=== PATIENT | male | born 1950 | race Caucasian/White ===

== ENCOUNTER → 2021-07-13 11:27 | Outpatient (BNVA) | payer OTHER, SELFPAY | PROVIDERS: Visit Provider Urology ==

== ENCOUNTER 2022-01-24 12:38 | Day surgery (SDC) | payer MEDICARE, OTHER, SELFPAY ==
--- NOTE | 2022-01-21 12:17 | HO.ANESPROP2 ---
Documented by User: Ruby De La Cruz NP 01/21/22 12:18 HPI - Anesthesia Eval Consult details Narrative: 71yo M for Left Cystoscopy, Ureteroroscopy, Retro, Laser possible stent PMFSH Active Problems Active Problems: All Active Problems (Updated 01/11/22 @ 13:56 by Chema Ayala MD) Complicated urinary tract infection (Acute) Benign prostatic hyperplasia without lower urinary tract symptoms (Acute) Calculus of kidney (Acute) Past Medical History Medical History Benign prostatic hyperplasia without lower urinary tract symptoms Calculus of kidney Hyperlipidemia Hypothyroidism Surgical History Surgical History History of surgery Social History Social History Patient Tobacco Use Status: Never used Tobacco Use of substances other than those prescribed or required for medical reasons: No Are you DNR?: No Advance Directives: No Advance Directives Information Provided: Yes Recently lost weight without trying: No Nutrition Risks: No Nutritional Risk Meds Allergies Allergy/AdvReac Type Severity Reaction Status Date / Time No Known Allergies Allergy Verified 01/11/22 13:22 Home Medications Medication Instructions Recorded Confirmed Last Taken Type levothyroxine 75 mcg tablet mcg PO 07/13/21 Unknown History (Euthyrox) pravastatin 80 mg tablet mg PO 07/13/21 Unknown History Exam Exam Date and Time: January 21, 2022 121 Assessment and Plan Assessment Anesthesia Assessment: Chart Reviewed Documented by User: Luke Be MD 01/24/22 17:17 PMFSH Past Medical History Medical History Benign prostatic hyperplasia without lower urinary tract symptoms Calculus of kidney Hyperlipidemia Hypothyroidism Functional capacity: independent ambulation Family History Family history of problems with anesthesia: No Surgical History Surgical History History of surgery History of Problems with Anesthesia: No Social History Social History Patient Tobacco Use Status: Never used Tobacco Use of substances other than those prescribed or required for medical reasons: No Are you DNR?: No Advance Directives: No Advance Directives Information Provided: Yes Recently lost weight without trying: No Nutrition Risks: No Nutritional Risk Meds Allergies Allergy/AdvReac Type Severity Reaction Status Date / Time No Known Allergies Allergy Verified 01/11/22 13:22 Home Medications Medication Instructions Recorded Confirmed Last Taken Type levothyroxine 75 mcg tablet mcg PO 07/13/21 Unknown History (Euthyrox) pravastatin 80 mg tablet mg PO 07/13/21 Unknown History Exam Airway Mallampati Class: III TM Dist: >3cm Neck ROM: Full Loose/Missing/Broken Teeth: Yes (Fillings and missing teeth ) Heart: S1,S2 Lungs: b/l breath sounds Assessment and Plan Assessment Anesthesia Assessment: Anesthesia Plan Discussed Final Anesthetic Review Family History of Problems with Anesthesia: No History of Problems with Anesthesia: No NPO: Yes ASA Class: II Final Preanesthetic Review: Meds/Allgs Chart Reviewed, Consent Obtained/Reviewed and Anes Risks/Benef Reviewed Patient Risk: Intermediate Procedure Risk: Intermediate Anesthetic Plan Anesthetic Plan: GA Disposition: Standard PACU
--- NOTE | ~2022-01-24 | FL_ITS ---
EXAMINATION: XR FLUOROSCOPY WITH IMAGES CLINICAL INFORMATION: Left retrograde COMPARISON: None. TECHNIQUE: Fluoroscopy performed by Dr. Chema Ayala. Fluoroscopy time: 1.5 minutes. Cumulative Dose: 24.9 mGy. DAP: 6.79 Gy-cm2. Images: 4. FINDINGS: The initial fluoroscopic spot image shows contrast in the distal left ureter. There is an oval filling defect within the lumen possibly a calculus. The final fluoroscopic spot view shows left ureteral stent in position. There are numerous calcified phleboliths overlying the left and right pelvis. FL/FL guidance in OR IMPRESSION: Fluoroscopy for urologic procedures.
[2022-01-24 13:00] VITALS: BMI 23.3
[2022-01-24 13:07] VITALS: BP 131/71; PULSE 62; RESP 16; TEMP 36.7; O2SAT 96
[2022-01-24] MEDS: Lactated Ringers 1,000 ML 100 ML IVCONT (13:23)
--- NOTE | 2022-01-24 14:25 | MHC.SHP ---
Pre-Procedural Eval Section A Date of Service: 01/24/22 The patient is an INPATIENT: No Changes since office visit: No Cold of Flu in the past 2 weeks, No New Medical Problems, No Changes in Medication and No Patient answered all questions The History & Physical has been completed within 30 days and I have reviewed it.: Yes Section B Chief Complaint: kidney stone Details of Present Illness: left distal and renal stones Relevant Family History (Specify if Yes): No Relevant Social History: None Present Medications: None Medical History: No relevant PMH History of Previous Operations: No relevant previous surgery Allergies: Allergies Allergy/AdvReac Type Severity Reaction Status Date / Time No Known Allergies Allergy Verified 01/11/22 13:22 Review of Systems Sugical H&P ROS: Negative: Constitution, Cardiovascular, Respiratory, Neurological, Psychiatric, Hem-Onc, Allergic/Immunologic, Gastrointestinal, Genitourinary, Musculoskeletal, Integumentary, Endocrine and Eyes/Ears/Nose/Throat Exam Surgical H&P Exam: Normal: HEENT, Normal: Heart, Normal: Lungs, Normal: Extremities, Normal: Abdomen, Normal: Skin and Normal: Neurological Plan Diagnosis/Plan: Unchanged I have reviewed the history and physical and performed a pertinent physical examination on my patient. No changes have occurred unless specified.
--- NOTE | 2022-01-24 16:02 | P.OP_ITS ---
Operative Note Operative Note Date of Service: 01/24/22 Narrative: PreOperative Diagnosis: left distal ureteric stone and left stones in lower pole kidney Post Operative Diagnosis: above Procedure: - cystoscopy, left retrograde - left dilatation of ureteric orifice under fluoroscopy - left rigid ureteroscopy, laser lithotripsy, stone basketing - placement left ureteric access sheath - left flexible ureteroscopy to lower pole kidney stones with laser lithotripsy, basketing - 8 x 5 to 9 mm stones - left stent placement Surgeon: Dr Chema Ayala Anesthesia: General Indications for procedure: found to have distal 12 mm stone in left kidney with mild hydroureteronephrosis and collection of stones in left lower pole Procedure: After informed consent was verified patient was brought to the operating placed in supine position. Anesthesia was administered per protocol. Patient was placed in modified dorsal lithotomy position and prepped and draped in a sterile fashion. Safety pause time-out and side of surgery confirmed. Antibiotics confirmed. A 22 [place] cystoscope was inserted per urethra. Bladder was normal in its entirety. Both ureteric orifices were in normal position. The left ureteric orifice was cannulated and a retrograde examination was performed. filling defects seen in distal portion left ureter with left hydroureteronephrosis . A Sensor guidewire was placed up to the level of the renal pelvis under fluoroscopy. The rigid cystoscope was removed. A Keene dilator was placed over the Sensor guidewire and used to dilate the ureteric orifice under fluoroscopy. The dilator was removed. The semi rigid ureteral scope was placed alongside the Sensor guidewire. the stone was encountered in broken into small pieces using a 360 holmium laser fiber. Using a flat wire basket multiple passes the stone debris was removed we sent for analysis. The rigid ureteral scope was removed. A ureteric access sheath was placed Flexible ureteral scope was placed. Eight 5-9 mm stones were found within the left lower pole. using combination of continuous suction and 270 holmium laser fiber the stones were broken into small pieces and aspirated. Using a 0 tip basket 5 Or 6 final pieces were removed which will be sent for analysis. A 6 [place] by 26 cm double-J stent was placed into the renal pelvis and bladder under a combination of fluoroscopy and direct visualization. The bladder was emptied. The patient tolerated the procedure well and was e xtubated in the operating room, and transferred in stable condition to the recovery area. Pathology: stone from the distal ureter, stone from the kidney Drains: 6 [place] by 26 cm double-J stent
[2022-01-24 16:15] VITALS: BP 135/67; PULSE 61; RESP 15; TEMP 36.3; O2SAT 100
[2022-01-24] MEDS: Phenazopyridine HCL 100 MG TABLET PO (16:17)
[2022-01-24] MEDS: Acetaminophen 325 MG TABLET 650 MG PO (16:17)
[2022-01-24 16:20] VITALS: BP 141/73; PULSE 60; RESP 16; O2SAT 95
[2022-01-24 16:25] VITALS: BP 140/73; PULSE 56; RESP 16; O2SAT 95
[2022-01-24 16:30] VITALS: BP 158/79; PULSE 65; RESP 16; TEMP 36.1; O2SAT 96
[2022-01-27 17:07] LABS: Stone Source LEFT KIDNEY STONE
[2022-01-27 17:07] LABS: Stone Source LEFT URETERAL STONE
== END 2022-01-24 17:02 | disposition home or self-care (01) ==
PROVIDERS: PCP Physician Assistant Medical; Visit Provider Urology
PROC: (CPT 52356; principal; 2022-01-24 14:40)
DX: N20.0 Calculus of kidney (principal); N20.1 Calculus of ureter; N13.30 Unspecified hydronephrosis; N39.0 Urinary tract infection, site not specified; N40.0 Benign prostatic hyperplasia without lower urinary tract symptoms; E78.5 Hyperlipidemia, unspecified; E03.9 Hypothyroidism, unspecified; Z79.899 Other long term (current) drug therapy
CPT/HCPCS: 52356; 52352; 82365; 88300; C1758; C1769; C1894; C2617; J1956; J2405; J3010; Q9967

== ENCOUNTER → 2022-02-01 12:54 | Outpatient (BNVA) | payer MEDICARE, OTHER, SELFPAY | PROVIDERS: PCP Physician Assistant Medical; Visit Provider Urology | DX: Z48.816 Encounter for surgical aftercare following surgery on the genitourinary system (principal); N40.0 Benign prostatic hyperplasia without lower urinary tract symptoms | CPT/HCPCS: 52310; 99212 ==

== ENCOUNTER 2022-03-22 12:40 | Outpatient (REF) | payer MEDICARE, OTHER, SELFPAY ==
--- NOTE | ~2022-03-22 | US_ITS ---
EXAMINATION: US RETROPERITONEAL LIMITED (RENAL ONLY) CLINICAL INFORMATION: Calculus of kidney. COMPARISON: None TECHNIQUE: Real-time imaging of the kidneys. FINDINGS: RIGHT KIDNEY: 10.7 x 3.9 x 5.8 cm (SAG x AP x TRV). The kidney is normal in size, contour, and echogenicity. Renal cortical thickness is normal. There is a 1.5 x 1.7 cm minimally complex cyst in the midpole. This has a single thin septation. There is a peripheral calcification questionable for calcification related to the cyst versus a stone. This measures 4 mm. No hydronephrosis. LEFT KIDNEY: 9.2 x 5.3 x 4.3 cm (SAG x AP x TRV). The kidney is normal in size, contour, and echogenicity. Renal cortical thickness is normal. There are multiple small left renal stones, largest stone or cluster of stones in the lower pole measures 6 x 5 x 8 mm. No focal parenchymal lesions or hydronephrosis. US/US renal BI IMPRESSION: Left renal stones. Minimally complex 1.5 x 1.7 cm right renal cyst. Question calcification associated with a cyst versus adjacent mid pole right renal stone measuring 4 mm..
== END 2022-03-22 12:41 | disposition home or self-care (01) ==
LOC: HO.US 12:40
PROVIDERS: Visit Provider Urology
DX: N20.0 Calculus of kidney (principal)
CPT/HCPCS: 76775

== ENCOUNTER → 2022-05-05 09:31 | Outpatient (BNVA) | payer MEDICARE, OTHER, SELFPAY | PROVIDERS: PCP Physician Assistant Medical; Visit Provider Urology | DX: N20.0 Calculus of kidney (principal); N39.0 Urinary tract infection, site not specified | CPT/HCPCS: Q3014 ==

== ENCOUNTER 2022-11-08 14:46 | Outpatient (REF) | payer MEDICARE, OTHER, SELFPAY ==
--- NOTE | ~2022-11-08 | US_ITS ---
EXAMINATION: US RETROPERITONEAL LIMITED (RENAL ONLY) CLINICAL INFORMATION: Calculus of kidney. COMPARISON: Ultrasound retroperitoneal limited (renal only) 03/22/2022. TECHNIQUE: Real-time imaging of the kidneys. Technically somewhat limited study secondary to rib spaces. FINDINGS: RIGHT KIDNEY: 10.5 x 5.4 x 5.1 cm (SAG x AP x TRV). The kidney is normal in size, contour, and echogenicity. Renal cortical thickness is normal. . There is a complex cyst in the mid kidney measuring 1.6 x 1.9 x 1.8 cm. Just adjacent to this cyst is an the area of echogenicity and shadowing measuring 1.3 x 0.7 x 0.8 cm consistent with nonobstructing stones. No solid renal masses. No hydronephrosis. LEFT KIDNEY: 9.9 x 5.9 x 4.6 cm (SAG x AP x TRV). The kidney is normal in size, contour, and echogenicity. Renal cortical thickness is normal. No renal calculi or hydronephrosis. There is a lower pole benign 1.3 cm cyst. Previously seen calculus at the lower pole is not identified on the current exam. US/US renal BI IMPRESSION: 1. Complex right renal cyst with adjacent shadowing stone. This is at most a Bosniak class II cyst and should need no further imaging or follow-up. 2. Benign simple left renal cyst needs no additional imaging or follow-up. 3. Previously seen left lower pole calculus is not identified on the current exam.
== END 2022-11-08 14:47 | disposition home or self-care (01) ==
LOC: HO.US 14:46
PROVIDERS: Visit Provider Urology
DX: N20.0 Calculus of kidney (principal)
CPT/HCPCS: 76775

== ENCOUNTER → 2022-11-11 13:42 | Outpatient (BNVA) | payer MEDICARE, OTHER, SELFPAY | PROVIDERS: PCP Physician Assistant Medical; Visit Provider Nurse Practitioner Family | DX: N20.0 Calculus of kidney (principal); N28.1 Cyst of kidney, acquired; N40.0 Benign prostatic hyperplasia without lower urinary tract symptoms | CPT/HCPCS: Q3014 ==

== ENCOUNTER 2023-06-02 14:51 | Outpatient (REF) | payer MEDICARE, OTHER, SELFPAY ==
--- NOTE | ~2023-06-02 | US_ITS ---
EXAMINATION: US RETROPERITONEAL LIMITED (RENAL ONLY) CLINICAL INFORMATION: Calculus of kidney. COMPARISON: Renal ultrasound 11/08/2022 and 03/22/2022. TECHNIQUE: Real-time imaging of the kidneys. FINDINGS: RIGHT KIDNEY: 11.0 x 3.8 x 4.6 cm (SAG x AP x TRV). The kidney is normal in size, contour, and echogenicity. Renal cortical thickness is normal. No renal calculi or hydronephrosis. A benign 2.3 x 1.6 x 2.1 cm Bosniak class II renal cyst is noted with some calcification in its wall. This requires no additional imaging or follow up. At the time of the prior study, this was felt to represent stones adjacent to this cyst. No solid renal masses are seen. LEFT KIDNEY: 8.2 x 4.1 x 4.6 cm (SAG x AP x TRV). The kidney is normal in size, contour, and echogenicity. Renal cortical thickness is normal. There is a cluster of calculi present at the lower pole of the left kidney that may be layering within a calyceal diverticulum. No hydronephrosis. A benign 0.9 cm Bosniak class I renal cyst is noted which requires no additional imaging or follow up. No solid renal masses are seen. Incidental note made of an echogenic liver consistent with hepatic steatosis. US/US renal BI IMPRESSION: 1. Bilateral renal cysts. 2. Left-sided renal calculi. 3. Incidentally noted hepatic steatosis. 4. A worrisome finding is not present.
== END 2023-06-02 14:52 | disposition home or self-care (01) ==
LOC: HO.US 14:51
PROVIDERS: PCP Physician Assistant Medical; Visit Provider Nurse Practitioner Family
DX: N20.0 Calculus of kidney (principal); N28.1 Cyst of kidney, acquired
CPT/HCPCS: 76775

== ENCOUNTER 2023-06-30 14:35 | Outpatient (AMB) | payer MEDICARE, OTHER, SELFPAY ==
--- NOTE | 2023-06-30 14:48 | A.OFFVIS_ITS ---
Intake Intake Visit Reasons: follow up/US 06/02/PSA Intake Note: Patient is present today for follow up visit for ultrasound and psa results (imaging 06/02/23) (psa 1.0) Urology Medications: Vitamin B6 Antibiotic Allergy: None Blood Thinner: None Cleaning Manager Required: No Accompanied by: Self / Same As Patient Allergies No Known Allergies Allergy (Verified 06/30/23 19:34) Medication List - Last Reconciled 06/30/23 by SJ Leahy levothyroxine mcg PO pravastatin mg PO pyridoxine (vitamin B6) 100 mg PO DAILY 90 days HPI HPI Comments History of Present Illness Details Mr. Saleem is a very pleasant 73 year old male patient of Dr. Hall. He has a past medical history of hyperlipidemia, hypothyroidism, and nephrolithiasis. He is being seen today for a follow up of his nephrolithiasis and lower urinary tract symptoms. When asked he reports to be doing and feeling well. Recent renal ultrasound results reviewed with the patient today. Right kidney with benign 2.3 x 1.6 x 2.1 cm Bosniak class 2 renal cyst which requires no additional follow-up. No solid renal masses are seen. Left kidney with a custom of calculi present at the lower pole of the left kidney that may be layering within a calyceal diverticulum. No hydronephrosis. A benign 0.9 cm Bosniak class 1 renal cyst is noted which requires no additional imaging or follow-up. No renal masses are seen. Recent PSA results reviewed with the patient today. 06/10--1.0. When asked patient denies any urological issues or concerns at this time. He denies urinary urgency, urinary frequency, incontinence, nocturia, hematuria, dysuria, foul smelling urine, changes to urinary stream, flank pain, fever, and or chills. He is happy with his current voiding parameters. He reports to be drinking plenty of water daily. In office urinalysis results reviewed with the patient today. He reports compliance with vitamin B6 daily. He reports having ran out of refills on his Alloprinol and would like trail coming off if it at this time. Nephrolithiasis/Urolithiasis:? Had been seen at [facility] late 2019 with flank pain ? Urolithiasis was diagnosed?a number of years ago.? The patient previously had kidney stones whose composition w?calcium oxalate, calcium phosphate - hydroxyapatite.? - 02/07 weeks calcium oxalate with carbonate apatite ? Laboratory investigations include?no recent labs.? 24 Hour urine evaluation?none on file.? Prior treatment(s) include?ESWLx2 and , PCNL, left, 02/07 left USR ? Prior imaging includes?11/01 showing radiodense stone(s), on the left, < 5 mm ?11/02 , , showing radiodense stone(s), collection less than 5 mm on the left ?11/03 , showing no evidence of stones, collection on left < 5mm for 12mm total ?11/04 , a renal ultrasound, left 5mm stone ?12/06 , a KUB x-ray, left stone cluster 1 cm - 07/10 KUB left stone cluster 1 cm - 04/09 renal ultrasound, no stones right, small cluster left largest 5 mm ? The stone's maximum size is?2mm.? - 11/08 renal ultrasound, right complex renal cyst measuring 1.6 x 1.9 x 1.8 cm. Nonobstructing 1.3 x 0.7 x 0.8 cm stone, left side with no stones 1.3 cm cyst. Lower urinary tract symptoms ? Benign prostatic hyperplasia (BPH) was diagnosed?years ago.? Current symptoms include?AUA score 0 - very happy.? Alleviating factors include?TURP 04/29.? Associated symptoms include?none.? Recent labs included?a PSA (prostate-specific antigen) 2012 - 0.4 ?11/03 0.7.?, 04/09 1.3, 06/10 1.0 ? Investigative studies included?a uroflow Q max 23, voided volume of 180cc. PVR 17cc. PFSH Medical History Hyperlipidemia Hypothyroidism Benign prostatic hyperplasia without lower urinary tract symptoms Calculus of kidney Surgical History History of surgery Social History Patient Tobacco Use Status: Never used Tobacco Review of Systems Const All systems reviewed & are unremarkable except as noted in HPI and below Eyes Reports no additional complaints ENT Reports no additional complaints Card Reports as per HPI Resp Reports no additional complaints GI Reports no additional complaints Reports as per HPI Musc Reports no additional complaints Neuro Reports no additional complaints Psych Reports no additional complaints Endo Reports as per HPI Timoteo/Lymph Reports no additional complaints Aller/Immun Reports no additional complaints Physical Exam Const General: cooperative, healthy appearing, comfortable, no acute distress, well d eveloped, alert and awake Orientation/consciousness: patient oriented x3 Limitations: no limitations HEENT Head: Yes normal to inspection, Yes normocephalic and Yes atraumatic Ears: hearing grossly normal bilaterally Eyes General: appearance normal, both eyes and all related structures Neck Neck: Yes normal visual inspection and Yes trachea midline Chest Chest palpation & inspection: normal inspection of the chest Resp Effort & Inspection: normal respiratory effort and able to speak in complete sentences Cardio Rate: regular rate GI Inspection: Yes normal to inspection General: Yes no CVA tenderness Back/Spine/Pelvis Back: no CVA tenderness Skin General skin exam: no rashes or lesions noted Neuro General: patient oriented x3 Extrem General: Yes normal to inspection Psych Appearance: grossly normal and well kempt Mental Status: mental status grossly normal Speech and movement: Normal speech and movement present and Clear speech present Affect: normal affect Attitude: cooperative Thought process: Normal thought process present Thought content: Normal thought content present Insight: Fair insight present (Psych) Judgement: Fair judgement present (Psych) Results AMB Urinalysis, Automated UA Leukoctes 500 Angela/uL Last Edit by Dave Polk on 06/30/23 15:05 UA Nitrite Negative Last Edit by Dave Polk on 06/30/23 15:05 UA Urobilinogen 0.2 mg/dL Last Edit by Dave Polk on 06/30/23 15:05 UA Protein 0 mg/dL Last Edit by Dave Polk on 06/30/23 15:05 UA pH 6.0 Last Edit by Dave Polk on 06/30/23 15:05 UA Blood 0 Kenyon/uL Last Edit by Dave Polk on 06/30/23 15:05 UA Specific Roscoe 1.015 Last Edit by Dave Polk on 06/30/23 15:05 UA Ketone Negative Last Edit by Dave Polk on 06/30/23 15:05 UA Bilirubin 0 mg/dL Last Edit by Dave Polk on 06/30/23 15:05 UA Glucose 0 mg/dL Last Edit by Dave Polk on 06/30/23 15:05 Results Reviewed Results Reviewed: Laboratory Last Values Urine pH (Auto) 6.0 06/30/23 14:57 Specific Roscoe (Auto) 1.015 06/30/23 14:57 Urine Protein (Auto) 0 mg/dL 06/30/23 14:57 Glucose (UA)(Auto) 0 mg/dL 06/30/23 14:57 Urine Ketones (Auto) Negative 06/30/23 14:57 Urine Blood (Auto) 0 Kenyon/uL 06/30/23 14:57 Urine Nitrite (Auto) Negative 06/30/23 14:57 Urine Bilirubin (Auto) 0 mg/dL 06/30/23 14:57 Urine Urobilinogen (Auto) 0.2 mg/dL 06/30/23 14:57 Leukocyte Esterase (Auto) 500 Angela/uL 06/30/23 14:57 Date of Service: 06/02/23 EXAMINATION: US RETROPERITONEAL LIMITED (RENAL ONLY) FINDINGS: RIGHT KIDNEY: 11.0 x 3.8 x 4.6 cm (SAG x AP x TRV). The kidney is normal in size, contour, and echogenicity. Renal cortical thickness is normal. No renal calculi or hydronephrosis. A benign 2.3 x 1.6 x 2.1 cm Bosniak class II renal cyst is noted with some calcification in its wall. This requires no additional imaging or follow up. At the time of the prior study, this was felt to represent stones adjacent to this cyst. No solid renal masses are seen. LEFT KIDNEY: 8.2 x 4.1 x 4.6 cm (SAG x AP x TRV). The kidney is normal in size, contour, and echogenicity. Renal cortical thickness is normal. There is a cluster of calculi present at the lower pole of the left kidney that may be layering within a calyceal diverticulum. No hydronephrosis. A benign 0.9 cm Bosniak class I renal cyst is noted which requires no additional imaging or follow up. No solid renal masses are seen. Incidental note made of an echogenic liver consistent with hepatic steatosis. IMPRESSION: 1. Bilateral renal cysts. 2. Left-sided renal calculi. 3. Incidentally noted hepatic steatosis. 4. A worrisome finding is not present. Assessment & Plan Assessment & Plan (1) Complex renal cyst: Code(s): N28.1 - Cyst of kidney, acquired (2) Calculus of kidney: Code(s): N20.0 - Calculus of kidney (3) Benign prostatic hyperplasia without lower urinary tract symptoms: Code(s): N40.0 - Benign prostatic hyperplasia without lower urinary tract symptoms Plan In office urinalysis results reviewed with the patient today. Recent renal ultrasound results reviewed with the patient today; as noted above. Recent PSA results reviewed with the patient today; as noted above. Patient currently denies any bothersome urinary issues or concerns. Continue vitamin B6 as discussed and prescribed. Will discontinue allopurinol at this time. Discussed at length surveillance monitoring versus surgical intervention of nephrolithiasis. Discussed near future further metabolic workup. Renal ultrasound in 6 months Follow-up in 6 months with imaging and lab to be completed prior or sooner with any questions, concerns, and or issues. Orders: Orders AMB Urinalysis Automated Today Z13.9 - Encounter for screening, unspecified Patient Instructions: The patient had an opportunity to ask questions regarding the treatment plan. All questions were answered. Physical exam, labs, and imaging were discussed and reviewed in detail. As well as risks, benefits, and discussion of treatment choices. No major barriers to understanding were identified. The patient expressed understanding and agreement with the above treatment plan. The patient was made aware they should contact our office by phone for worsening of their current condition, the appearance of new symptoms, or with any questions or concerns. Compliance is encouraged with any medications and follow up testing that is ordered. It is a privilege to be allowed the opportunity to participate in? your urological care.? Again, if you have any questions or concerns If you have any questions or concerns please do not hesitate to contact me. The office is [phone]. This note is constructed using voice recognition software. While every effort has been made to ensure accuracy firer watertender errors may have been included. Yours sincerely, CLEMENTE Leahy Coding Level of Care Code Est Pt Level 3 (49729) Diagnoses Complex renal cyst N28.1 Calculus of kidney N20.0 Benign prostatic hyperplasia without lower urinary tract symptoms N40.0
== END 2023-06-30 15:33 | disposition home or self-care (01) ==
PROVIDERS: PCP Physician Assistant Medical; Visit Provider Nurse Practitioner Family
DX: N28.1 Cyst of kidney, acquired (principal); N20.0 Calculus of kidney; N40.0 Benign prostatic hyperplasia without lower urinary tract symptoms; Z13.9 Encounter for screening, unspecified
CPT/HCPCS: 99213

== ENCOUNTER → 2023-06-30 14:35 | Outpatient (BNVA) | payer MEDICARE, OTHER, SELFPAY | PROVIDERS: PCP Physician Assistant Medical; Visit Provider Nurse Practitioner Family | DX: N20.0 Calculus of kidney (principal); N28.1 Cyst of kidney, acquired; N40.0 Benign prostatic hyperplasia without lower urinary tract symptoms | CPT/HCPCS: 81003; 99212 ==

== ENCOUNTER 2023-12-20 08:46 | Outpatient (REF) | payer MEDICARE, OTHER, SELFPAY ==
--- NOTE | ~2023-12-20 | US_ITS ---
EXAMINATION: US RETROPERITONEAL LIMITED (RENAL ONLY) CLINICAL INFORMATION: Cyst of kidney, acquired. COMPARISON: Renal ultrasound 06/02/2023 and 11/08/2022. TECHNIQUE: Real-time imaging of the kidneys. Limited visualization due to bowel gas. FINDINGS: RIGHT KIDNEY: 11.0 x 5.1 x 5.3 cm (SAG x AP x TRV). No hydronephrosis. No obstructing renal calculi. Limited visualization. A 1.8 cm midpole cyst with echogenic foci characteristic of calcifications is redemonstrated with benign features. Per previous reports, these calculi were felt to more likely represent calcifications adjacent to the cyst, however, evaluation limited on the current exam due to bowel gas. There is no specific indication for additional imaging. LEFT KIDNEY: 9.7 x 4.4 x 4.3 cm (SAG x AP x TRV). Renal cortical thickness is normal. No hydronephrosis. Limited visualization. A 1.0 cm cluster of calcifications in the lower pole. A 0.3 cm lower pole calculus. A 1.4 cm lower pole cyst is redemonstrated, stable in size. There is no indication for follow-up imaging. US/US renal BI IMPRESSION: Left nephrolithiasis. No hydronephrosis.
== END 2023-12-20 08:47 | disposition home or self-care (01) ==
LOC: HO.US 08:46
PROVIDERS: PCP Physician Assistant Medical; Visit Provider Nurse Practitioner Family
DX: N28.1 Cyst of kidney, acquired (principal)
CPT/HCPCS: 76775

== ENCOUNTER 2023-12-29 13:23 | Outpatient (AMB) | payer MEDICARE, OTHER, SELFPAY ==
--- NOTE | 2023-12-29 13:27 | A.OFFVIS_ITS ---
Intake Visit Reasons: 6m/US(set) Intake Note: Patient is present today for follow up visit on: renal cyst, kidney stone, ultrasound results Imagin12/20/23 Urology Medications: Vitamin B6 Antibiotic Allergy: None Blood Thinner: None Bus Steward Required: No Accompanied by: Self / Same As Patient Allergies No Known Allergies Allergy (Verified 12/29/23 13:53) Medication List - Last Reconciled 12/29/23 by SJ Leahy levothyroxine mcg PO pravastatin mg PO pyridoxine (vitamin B6) 100 mg PO DAILY 90 days HPI Comments Details: Mr. Saleem is a very pleasant 73 year old male patient of Dr. Hall. He has a past medical history of hyperlipidemia, hypothyroidism, and nephrolithiasis. He is being seen today for a follow up of his nephrolithiasis and lower urinary tract symptoms. When asked he reports to be doing and feeling well. Recent renal ultrasound results reviewed with the patient today. Right kidney with no hydronephrosis or renal calculi. 1.8 cm mid pole cyst with echogenic foci with benign features there is no specific indication for additional follow-up per radiology report. Left kidney with no hydronephrosis. A 1.0 cm cluster of calcifications in the lower pole. A 0.3 cm lower pole calculus. A 1.4 cm lower pole cyst is redemonstrated, stable in size. There is no indication for follow-up imaging per radiology report. In discussion with the patient today he reports to be doing and feeling well. He denies any bothersome urinary issues or concerns. He denies urinary urgency, urinary frequency, incontinence, nocturia, hematuria, dysuria, foul smelling urine, changes to urinary stream, flank pain, fever, and or chills. He is happy with his current voiding parameters. He reports to be drinking plenty of water daily. In office urinalysis results reviewed with the patient today. He reports compliance with vitamin B6 daily. He otherwise offers no other issues or concerns at this time. PSAs are as follows: 06/10--1.0. Nephrolithiasis/Urolithiasis:? Had been seen at [facility] late 2019 with flank pain ? Urolithiasis was diagnosed?a number of years ago.? The patient previously had kidney stones whose composition w?calcium oxalate, calcium phosphate - hydroxyapatite.? - 02/07 weeks calcium oxalate with carbonate apatite ? Laboratory investigations include?no recent labs.? 24 Hour urine evaluation?none on file.? Prior treatment(s) include?ESWLx2 and , PCNL, left, 02/07 left USR ? Prior imaging includes?11/01 showing radiodense stone(s), on the left, < 5 mm ?11/02 , , showing radiodense stone(s), collection less than 5 mm on the left ?11/03 , showing no evidence of stones, collection on left < 5mm for 12mm total ?11/04 , a renal ultrasound, left 5mm stone ?12/06 , a KUB x-ray, left stone cluster 1 cm - 07/10 KUB left stone cluster 1 cm - 04/09 renal ultrasound, no stones right, small cluster left largest 5 mm ? The stone's maximum size is?2mm.? - 11/08 renal ultrasound, right complex renal cyst measuring 1.6 x 1.9 x 1.8 cm. Nonobstructing 1.3 x 0.7 x 0.8 cm stone, left side with no stones 1.3 cm cyst. Lower urinary tract symptoms ? Benign prostatic hyperplasia (BPH) was diagnosed?years ago.? Current symptoms include?AUA score 0 - very happy.? Alleviating factors include?TURP 04/29.? Associated symptoms include?none.? Recent labs included?a PSA (prostate-specific antigen) 2012 - 0.4 ?11/03 0.7.?, 04/09 1.3, 06/10 1.0 ? Investigative studies included?a uroflow Q max 23, voided volume of 180cc. PVR 17cc. PFSH Medical History Hyperlipidemia Hypothyroidism Benign prostatic hyperplasia without lower urinary tract symptoms Calculus of kidney Surgical History History of surgery Social History Patient Tobacco Use Status: Never used Tobacco Physical Exam Const General: cooperative, healthy appearing, comfortable, no acute distress, well developed, alert and awake Orientation/consciousness: patient oriented x3 Limitations: no limitations HEENT Head: Yes normal to inspection, Yes normocephalic and Yes atraumatic Ears: hearing grossly normal bilaterally Eyes General: appearance normal, both eyes and all related structures Neck Neck: Yes normal visual inspection and Yes trachea midline Chest Chest palpation & inspection: normal inspection of the chest Resp Effort & Inspection: normal respiratory effort and able to speak in complete sentences Cardio Rate: regular rate GI Inspection: Yes normal to inspection General: Yes no CVA tenderness Back/Spine/Pelvis Back: no CVA tenderness Skin General skin exam: no rashes or lesions noted Neuro General: patient oriented x3 Extrem General: Yes normal to inspection Psych Appearance: grossly normal and well kempt Mental Status: mental status grossly normal Speech and movement: Normal speech and movement present and Clear speech present Affect: normal affect Attitude: cooperative Thought process: Normal thought process present Thought content: Normal thought content present Insight: Fair insight present (Psych) Judgement: Fair judgement present (Psych) Results AMB Urinalysis, Automated UA Leukoctes 0 Angela/uL Last Edit by [employer] on 12/29/23 13:49 UA Nitrite Negative Last Edit by [employer] on 12/29/23 13:49 UA Urobilinogen 0.2 mg/dL Last Edit by Idirogarham Polk on 12/29/23 13:49 UA Protein 15 mg/dL Last Edit by [employer] on 12/29/23 13:49 UA pH 6.0 Last Edit by [employer] JeanneKuaidi Dache on 12/29/23 13:49 UA Blood 0 Kenyon/uL Last Edit by [employer] on 12/29/23 13:49 UA Specific [place] 1.020 Last Edit by [employer] on 12/29/23 13:49 UA Ketone Negative Last Edit by [employer] on 12/29/23 13:49 UA Bilirubin 0 mg/dL Last Edit by Dave Polk on 12/29/23 13:49 UA Glucose 0 mg/dL Last Edit by Dave Polk on 12/29/23 13:49 Results Reviewed Results Reviewed: Laboratory Last Values Urine pH (Auto) 6.0 12/29/23 13:44 Specific [place] (Auto) 1.020 12/29/23 13:44 Urine Protein (Auto) 15 mg/dL 12/29/23 13:44 Glucose (UA)(Auto) 0 mg/dL 12/29/23 13:44 Urine Ketones (Auto) Negative 12/29/23 13:44 Urine Blood (Auto) 0 [place]/uL 12/29/23 13:44 Urine Nitrite (Auto) Negative 12/29/23 13:44 Urine Bilirubin (Auto) 0 mg/dL 12/29/23 13:44 Urine Urobilinogen (Auto) 0.2 mg/dL 12/29/23 13:44 Leukocyte Esterase (Auto) 0 Angela/uL 12/29/23 13:44 EXAMINATION: US RETROPERITONEAL LIMITED (RENAL ONLY) FINDINGS: RIGHT KIDNEY: 11.0 x 5.1 x 5.3 cm (SAG x AP x TRV). No hydronephrosis. No obstructing renal calculi. Limited visualization. A 1.8 cm midpole cyst with echogenic foci characteristic of calcifications is redemonstrated with benign features. Per previous reports, these calculi were felt to more likely represent calcifications adjacent to the cyst, however, evaluation limited on the current exam due to bowel gas. There is no specific indication for additional imaging. LEFT KIDNEY: 9.7 x 4.4 x 4.3 cm (SAG x AP x TRV). Renal cortical thickness is normal. No hydronephrosis. Limited visualization. A 1.0 cm cluster of calcifications in the lower pole. A 0.3 cm lower pole calculus. A 1.4 cm lower pole cyst is redemonstrated, stable in size. There is no indication for follow-up imaging. IMPRESSION: Left nephrolithiasis. No hydronephrosis. Assessment & Plan Assessment & Plan (1) Complex renal cyst: Code(s): N28.1 - Cyst of kidney, acquired Category: Medical (2) Calculus of kidney: Code(s): N20.0 - Calculus of kidney Category: Medical (3) Benign prostatic hyperplasia without lower urinary tract symptoms: Code(s): N40.0 - Benign prostatic hyperplasia without lower urinary tract symptoms Category: Medical Plan In office urinalysis results reviewed with the patient today. Recent renal ultrasound results reviewed with the patient today; as noted above. Patient currently denies any bothersome urinary issues or concerns. Continue vitamin B6 as discussed and prescribed. Discussed at length surveillance monitoring versus surgical intervention of nephrolithiasis; given increase in stone burden on left side; risks and benefits of these interventions were discussed. Patient does not currently wish to undergo further treatment options of nephrolithiasis at this time. Discussed near future further metabolic workup. Renal ultrasound in 6 months Will obtain PSA. Follow-up in 6 months with imaging and lab to be completed prior or sooner with any questions, concerns, and or issues. Orders: Orders AMB Urinalysis Automated 12/29/23 Z13.9 - Encounter for screening, unspecified Prostate Specific Antigen 12/29/23 N40.0 - Benign prostatic hyperplasia without lower urinary tract symptoms US renal BI 6 Months N20.0 - Calculus of kidney Patient Instructions: The patient had an opportunity to ask questions regarding the treatment plan. All questions were answered. Physical exam, labs, and imaging were discussed and reviewed in detail. As well as risks, benefits, and discussion of treatment choices. No major barriers to understanding were identified. The patient expressed understanding and agreement with the above treatment plan. The patient was made aware they should contact our office by phone for worsening of their current condition, the appearance of new symptoms, or with any questions or concerns. Compliance is encouraged with any medications and follow up testing that is ordered. It is a privilege to be allowed the opportunity to participate in? your urological care.? Again, if you have any questions or concerns If you have any questions or concerns please do not hesitate to contact me. The office is [phone]. This note is constructed using voice recognition software. While every effort has been made to ensure accuracy quill reamer errors may have been included. Yours sincerely, CLEMENTE Leahy Coding Level of Care Code Est Pt Level 3 (59855) Complex EM visit Add On G2211 Diagnoses Complex renal cyst N28.1 Calculus of kidney N20.0 Benign prostatic hyperplasia without lower urinary tract symptoms N40.0
== END 2023-12-29 13:54 | disposition home or self-care (01) ==
PROVIDERS: PCP Physician Assistant Medical; Visit Provider Nurse Practitioner Family
DX: N28.1 Cyst of kidney, acquired (principal); N20.0 Calculus of kidney; N40.0 Benign prostatic hyperplasia without lower urinary tract symptoms
CPT/HCPCS: 99213; G2211

== ENCOUNTER → 2023-12-29 13:23 | Outpatient (BNVA) | payer MEDICARE, OTHER, SELFPAY | PROVIDERS: PCP Physician Assistant Medical; Visit Provider Nurse Practitioner Family | DX: N28.1 Cyst of kidney, acquired (principal); N20.0 Calculus of kidney; N40.0 Benign prostatic hyperplasia without lower urinary tract symptoms | CPT/HCPCS: 81003; 99212 ==

== ENCOUNTER 2024-06-07 13:01 | Outpatient (REF) | payer MEDICARE, OTHER, SELFPAY ==
--- OUTSIDE RECORDS SUMMARY | 2024-06-07 13:03 | XMS_ITS | Continuity of Care Document ---
Author Organization [facility] [place], Main Office Address [address] [place] [address] Care Team Providers Care Commissioner Public Works Name Role Phone FIONA GONZALEZ Zigzag Elastic Attacher [phone] SEBASTIAN AQUINO Primary Care Provider [facility] Urologist [phone] Assessment No assessment recorded. Plan of Treatment Reminders Order Date Submit Date Provider Last Modified By Organization Details Last Modified Time Details Appointments None recorded. Lab HbA1c (hemoglob in A1c), blood 2023 [facility], [address], [place], [address], 4 08:09:08 CMP, serum or plasma 2023 [facility], [address], [place], [address], 4 08:09:05 CBC w/ auto diff 2023 [facility], [address], [place], [address], 4 08:09:04 lipid panel, serum 2023 [facility], [address], [place], [address], 4 08:09:06 CK (creatine kinase), total, serum 2023 024 [facility], [address], [place], [address], 08:09:06 PSA, total, serum or plasma 2023 024 [facility], [address], [place], [address], 4 08:09:08 TSH, ultra-sen sitive, serum 2023 [facility], [address], [place], [address], 4 08:09:09 Referral cardiolog ist referral 2023 024 [email or web address] [facility], [address], [place], [address], 10:10:13 dermatolo gist referral [email or web address] [facility], [address], [address], [place], [address], 15:24:53 Procedures None recorded. Surgeries None recorded. Imaging None recorded. Medication Orders Augmentin 875 mg-125 mg tablet 2023 [facility], [address] [place], [address], 4 10:35:29 Patient Targets Encounter Date Encounter Id Patient Goals Patient Target Last Modified By Organization Details Last Modified Time 03/27/2024 [id number] Ongoing of LDL Direct <100 Not available Not available Not available Ongoing of LDL Direct yearly Not available Not available Not available Pt agrees to follow low fat diet, avoid saturated fats , decrease carbohydrate intake to 45 - 50 gm per meal , pt agrees to develop a regular pattern of exercise such as walking 30 minutes a day 3 times a week, Pt will keep a record of exercise and activity level Patient preferences and goals incorporated in plan and updated/modifie d as needed to reflect progress toward goal. pmadden Not available 03/27/2024 20:23:27 Patient Instructions Encounter Date Encounter Id Patient Instructions Last Modified By Organization Details Last Modified Time 03/27/2024 [id number] advance care planning: care instructions pmadden Not available 03/27/2024 15:20:44 Acute Sinusitis: Care Instructions pmadden Not available 03/27/2024 15:20:43 preventing falls : care instructions pmadden Not available 03/27/2024 15:20:44 well visit, over 65: care instructions pmadden Not available 03/27/2024 15:20:44 medicare preventive services guide (male 74 rs and under) pmadden Not available 03/27/2024 15:20:43 Prostate Cancer Screening pmadden Not available 03/27/2024 15:20:43 Medications (OTC , herbal therapies, supplements) reviewed and reconciled with patient and or caregiver, including potential side effects, drug interactions, instructions, and the consequences of not taking medication. Reviewed potential barriers to medication adherence, such as side effects from medication or cost of medication. pmadden Not available 03/27/2024 20:23:41 Reason for Referral Undercover Cop Referral for S kin lesion Referring Physician: Sebastian Aquino, Internal Medicine, Encounter Date: 03/27/2024 Tailoring Teacher Referral for Hy perlipidemia Referring Physician: Sebastian Aquino, Internal Medicine, Encounter Date: 03/27/2024 Problems Name Problem SNOMED Code Status Onset Date Resolution Date Notes Provider Name and Address Organization Details Recorded Time Low blood pressure 12633138 Active ASHLY Breaux [facility] [place] 0 10:09:11 Anemia due to unknown mechanis m 02981903 [facility] 0 10:09:10 Anemia 847367617 Completed 201201/27/2014 RECORDED 07/02/19 13 9:40AM BY KENIA HOWELL MA, ANNOTATI ON/ADDDARIANA cox [facility] [place] 7 11:54:54 Bilatera l inguinal hernia 07661103 Completed 201201/27/2014 RECORDED 07/02/19 13 9:41AM BY BAILEE NEAL MA, ANNOTATI ON/ADDEN DUM Not Available [facility] 4 05:20:02 Cellulit is 247142656 Completed 201201/27/2014 RECORDED 07/02/19 13 9:42AM BY BAILEE NEAL MA, ANNOTATI ON/ADDEN DUM Not Available [facility] 4 05:20:02 Follow-u p encounte r Completed 201201/27/2014 RECORDED 07/02/19 13 9:42AM BY BAILEE NEAL MA, ANNOTATI ON/ADDEN DUM Not Available [facility] 4 05:20:02 Elevated level of transami nase and lactic acid dehydrog enase 049609866 Completed 201201/27/2014 RECORDED 07/02/19 13 9:41AM BY BAILEE NEAL MA, ANNOTATI ON/ADDEN DUM Not Available [facility] 4 05:20:02 Olecrano n bursitis 339376771 Completed 201201/27/2014 RECORDED 07/02/19 13 9:41AM BY BAILEE NEAL MA, ANNOTATI ON/ADDEN DUM Not Available [facility] 4 05:20:02 Screenin g for malignan t neoplasm of colon Completed 201201/27/2014 RECORDED 07/02/19 13 9:41AM BY BAILEE NEAL MA, ANNOTATI ON/ADDEN DUM Not Available [facility] 4 05:20:02 Disorder of rotator cuff 588642046 Completed 201201/27/2014 RECORDED 07/02/19 13 9:42AM BY BAILEE NEAL MA, ANNOTATI ON/ADDEN DUM Not Available [facility] 4 05:20:02 Anemia 270250616 Completed 201212/31/2013 RECORDED 07/02/19 13 9:40AM BY KENIA HOWELL MA, ANNOTATI ON/ADDEN DUM Lovely Bigby MA null, [facility] [place] 7 11:54:54 Anemia 973173238 Active 2013 ASHLY Breaux, [facility] [place] 0 10:09:11 Patient status finding 521287310 Completed 201303/06/2017 RECORDED 07/05/19 14 8:28AM BY BONNIE FLANAGAN MA, OFFICE VISIT Lovely cox, [facility] [place] 7 11:54:37 Benign prostati c hyperpla kristy 096198717 Active 2013 ASHLY Breaux, [facility] [place] 0 10:09:11 Bilatera l inguinal hernia 86154055 Completed 201212/31/2013 RECORDED 07/02/19 13 9:41AM BY BAILEE NELA MA, ANNOTATI ON/ADDEN DUM Not Available [facility] 4 13:51:16 Cellulit is 248026444 Completed 201212/31/2013 RECORDED 07/02/19 13 9:42AM BY BAILEE NEAL MA, ANNOTATI ON/ADDEN DUM Not Available [facility] 4 13:51:16 Urinary tract obstruct ion 3362004 Active 2013 ASHLY Breaux, [facility] [place] 0 10:09:10 Lower urinary tract symptoms 505256582 Completed 201307/10/2018 Kenia quan MA null, [facility] [place] 9 10:20:37 Adult health examinat ion Completed 201301/21/2014 RECORDED 07/05/19 14 8:28AM BY BONNIE FLANAGAN MA, OFFICE VISIT Star cox [facility] [place] 4 15:09:09 General examinat ion of patient Completed 201301/21/2014 RECORDED 07/05/19 14 8:18AM BY BONNIE FLANAGAN MA, OFFICE VISIT Star cox [facility] [place] 4 15:09:09 Follow-u p encounte r Completed 201212/31/2013 RECORDED 07/02/19 13 9:42AM BY BAILEE NEAL MA, ANNOTATI ON/ADDEN DUM Not Available [facility] 4 13:51:16 Hyperlip idemia 55044380 Active 2013 ASHLY Breaux [facility] [place] 0 10:09:11 Hyperlip idemia 53526558 Completed 201312/31/2013 RECORDED 07/05/19 14 8:18AM BY BONNIE FLANAGAN MA, ANNOTATI ON/ADDEN DUM Lovely cox [facility] [place] 7 11:55:06 Hypothyr oidism 62817372 Active 2013 ASHLY Breaux [facility] [place] 0 10:09:11 Hypothyr oidism 62242495 Completed 201312/31/2013 RECORDED 07/05/19 14 8:27AM BY BONNIE FLANAGAN MA, ANNOTATI ON/ADDEN DUM Lovely cox [facility] [place] 7 11:54:59 Impotenc e of organic origin Active 2013 ASHLY Breaux [facility] [place] 0 10:09:11 Lipoma 46392269 Active 2013 ASHLY Breaux [facility] [place] 0 10:09:10 Fibromyo sitis 05169511 Active 2013 ASHLY Breaux [facility] [place] 0 10:09:10 Influenz a vaccine needed 74057799664 06 Completed 201303/06/2017 RECORDED 07/05/19 14 9:09AM BY DANITA FRANCE MD, OFFICE VISIT Lovely cox [facility] [place] 7 11:54:40 Elevated level of transami nase and lactic acid dehydrog enase 463893324 Completed 201212/31/2013 RECORDED 07/02/19 13 9:41AM BY BAILEE NEAL MA, ANNOTATI ON/ADDEN DUM Not Available [facility] 4 13:51:17 Olecrano n bursitis 721865388 Completed 201212/31/2013 RECORDED 07/02/19 13 9:41AM BY BAILEE NEAL MA, ANNOTATI ON/ADDEN DUM Not Available [facility] 4 13:51:17 Peripher al vertigo 21570717 Active 2013 ASHLY Breaux, [facility] [place] 0 10:09:10 Adult health examinat ion Completed 201212/31/2013 RECORDED 07/02/19 13 9:42AM BY BAILEE NEAL MA, ANNOTATI ON/ADDEN DUM Not Available [facility] 4 13:51:18 Screenin g for malignan t neoplasm of colon Completed 201212/31/2013 RECORDED 07/02/19 13 9:41AM BY BAILEE NEAL MA, ANNOTATI ON/ADDEN DUM Not Available [facility] 4 13:51:18 Disorder of rotator cuff 386459311 Completed 201212/31/2013 RECORDED 07/02/19 13 9:42AM BY BAILEE NEAL MA, ANNOTATI ON/ADDEN DUM Not Available [facility] 4 13:51:18 Kidney stone 76199044 Active 2017 ASHLY Breaux, [facility] [place] 0 10:09:11 Family history of malignan t neoplasm of prostate 092017362 Active 2018 [facility]aux, [facility] 0 10:09:10 Impaired fasting glycemia 436721822 Completed 201809/23/2020 Sebastian Aquino PA-C [address], [place], [address] , [facility] 1 12:09:57 Pure hypercho lesterol emia 154133515 Active 2018 Lucero Chaves CPPM null, [facility] [place] 0 10:09:11 History of calculus of kidney 811973508 Active 2018 Lucero Chaves CPPM null, [facility] [place] 0 10:09:10 Closed fracture of multiple ribs 21906194 Active 2019 Sebastian Aquino PA-C [address], [place], [address] , [facility] 0 20:38:53 Constipa tion 92219920 Active 2019 Sebastian Aquino PA-C [address], [place], [address] , [facility] 0 20:38:57 Fracture of clavicle 29172127 Active 2019 Sebastian Aquino PA-C [address], [place], [address] , [facility] 0 20:39:00 Fracture of clavicle 19782568 Active 2019 Sebastian Aquino PA-C [address], [place], [address] , [facility] 0 10:13:28 Prediabe jennifer 006181930 Active 2020 Sebastian Aquino PA-C [address], [place], [address] , [facility] 1 12:06:20 Orthosta tic hypotens ion 62180511 Active 2020 Sebastian Aquino PA-C [address], [place], [address] , [facility] 1 15:48:19 Hypocalc emia 6066631 Active 2022 Sebastian Aquino PA-C [address], [place], [address] , [facility] 3 21:51:51 Abnormal liver function 23669133 Active 2022 Sebastian Aquino PA-C [address], [place], [address] , [facility] 3 21:52:15 Skin lesion 81353043 Active 2023 Sebastian Aquino PA-C [address], [place], [address] , [facility] 4 15:12:52 Nasal congesti on 58489954 Active 2023 Sebastian Aquino PA-C [address], [place], [address] , [facility] 4 17:23:43 Problem Notes None recorded. Procedures Surgical History Date Name Laterality Status Provider Name and Address Organization Details Recorded Time 03/27/20 24 Advanced Care Planning completed Sebastian Aquino PA-C [address], [place], [address], [facility] 03/27/2024 15:14:10 01/25/20 22 cystoscopy completed Nazia Toro [facility] [place] 02/16/2022 10:13:53 01/25/20 22 ureteroscopy completed Nazia Toro [facility] [place] 02/16/2022 10:14:16 01/25/20 22 placement of stent completed Nazia Toro [facility] [place] 02/16/2022 10:14:47 03/13/20 18 Mini-Cog Test completed Radha Bermudez MA [facility] [place] 03/13/2018 08:45:01 03/09/20 17 Fall Risk Assessment completed Brigitte Clemens MA [facility] [place] 03/09/2017 16:08:23 03/09/20 17 Mini-Cog Test completed Brigitte Clemens MA [facility] [place] 03/09/2017 16:09:13 02/12/20 16 Fall Risk Assessment completed Lovely Ibrahim [facility] 02/12/2016 13:48:08 02/12/20 16 Mini-Cog Test completed Lovely Ibrahim [facility] 02/12/2016 13:51:41 02/12/20 16 Advanced Care Planning completed Lovelymauricio Ibrahim [facility] 02/12/2016 13:41:57 01/01/20 14 Colonoscopy completed Brigitte Clemens [facility] 03/09/2017 16:06:56 05/18/20 11 transurethral prostatectomy completed Kenia olvera [facility] 07/10/2018 10:22:48 06/19/19 11 hernia repair completed Kenia olvera [facility] 07/10/2018 10:22:58 07/21/19 10 Eswl for gallstones completed Kenia olvera [facility] 07/10/2018 10:23:27 10/26/19 08 Eswl for gallstones completed Kenia olvera [facility] 07/10/2018 10:23:17 06/19/18 88 percutaneous nephrolithotomy without disintegration completed Kenia olvera [facility] 07/10/2018 10:23:59 Imaging Results None recorded. Procedure Notes None recorded. Medical Equipment None Reported. Allergies No known drug allergies Medications Name Sig Start Date Stop Date Status Note LastModified by Organization Details LastModified Time amoxicill in 500 mg capsule TAKE 2 CAPSULES BY MOUTH NOW AND 1 CAPSULE EVERY 8 HOURS UNTIL ALL IS FINISHED 03/27 completed Not Available Not Available Not Available terazosin 5 mg capsule AT BEDTIME 06/30 completed RECORDED 06/30/19 12 9:22AM BY DANITA FRANCE MD, ANNOTATI ON/ADDEN DUM; Not Available Not Available Not Available methocarb alexandre 500 mg tablet Take 1 tablet 3 times a day by oral route as directed . 12/03 completed Not Available Not Available Not Available prednison e 10 mg tablet Take 4 tabs x 2 days, 3 tabs x 2 days, 2 tabs x 2 days, 1 tab x 2 days then stop 08/20 completed Not Available Not Available Not Available doxycycli ne hyclate 100 mg capsule TAKE 1 CAPSULE BY MOUTH TWICE DAILY FOR 7 DAYS 05/03 completed Not Available Not Available Not Available azithromy coy 250 mg tablet TAKE 2 TABLETS (500 MG) BY ORAL ROUTE ONCE DAILY FOR 1 DAY THEN 1 TABLET (250 MG) BY ORAL ROUTE ONCE DAILY FOR 4 DAYS 07/19 completed Not Available Not Available Not Available pravastat in 40 mg tablet TAKE 1 TABLET BY MOUTH ONCE DAILY 12/15 completed Not Available Not Available Not Available benzonata te 200 mg capsule Take 1 capsule 3 times a day by oral route for 5 days. 08/20 completed Not Available Not Available Not Available meloxicam 15 mg tablet Take 1 tablet every day by oral route with meals for 30 days. 03/22 completed Not Available Not Available Not Available simvastat in 10 mg tablet QD 06/08 completed RECORDED 06/08/20 09 12:06PM BY DANITA FRANCE MD, ANNOTATI ON/LOU FELDER; Not Available Not Available Not Available Debrox 6.5 % ear drops INSTILL 5 DROPS INTO AFFECTED EAR(S) BY OTIC ROUTE 2 TIMES PER DAY 05/27 completed Not Available Not Available Not Available moxifloxa coy 400 mg tablet QD 04/11 completed RECORDED 04/19/20 07 3:12PM BY FIONA SPEARS MD, MEDICATI ON AUTO-ELOINA CTIVATIO N; Not Available Not Available Not Available meclizine 12.5 mg tablet THREE TIMES DAILY, NEEDED 03/14 completed RECORDED 05/14/20 08 10:33AM BY DANITA FRANCE MD, MEDICATI ON AUTO-ELOINA CTIVATIO N; Not Available Not Available Not Available allopurin ol 100 mg tablet TAKE 1 TABLET BY MOUTH ONCE DAILY 03/27 completed Not Available Not Available Not Available sulfameth oxazole 800 mg-trimet hoprim 160 mg tablet TAKE 1 TABLET BY MOUTH EVERY 12 HOURS FOR 7 DAYS 10/22 completed Not Available Not Available Not Available hydrocodo ne 10 mg-acetam inophen 325 mg tablet Take 1 tablet every 4 hours by oral route for 3 days. 08/20 completed Not Available Not Available Not Available sildenafi l 100 mg tablet QD PRN 06/16 completed RECORDED 06/16/20 11 12:31PM BY PETRA CRUM ON/LOU FELDER; Not Available Not Available Not Available levothyro xine 75 mcg tablet TAKE 1 TABLET BY MOUTH ONCE DAILY EXCEPT ON AND MONDAY TAKE 2 TABLETS NEED TO GO FOR FASTING LAB WORK 06/04 completed Not Available Not Available Not Available oxycodone -acetamin ophen 5 mg-325 mg tablet 02/03 completed Not Available Not Available Not Available levothyro xine 88 mcg tablet Take 1 tablet every day by oral route for 30 days. 2023 active Not Available Not Available Not Avai lable pravastat in 80 mg tablet TAKE 1 TABLET BY MOUTH ONCE DAILY AT BEDTIME active Not Available Not Available No t Available tamsulosi n 0.4 mg capsule TAKE 1 CAPSULE BY MOUTH ONCE DAILY AT BEDTIME FOR 14 DAYS 10/22 completed Not Available Not Available Not Available econazole 1 % topical cream APPLY TO THE AFFECTED AND SURROUND ING AREAS OF SKIN BY TOPICAL ROUTE 1-2 TIMES PER DAY x 10-14 days 07/10 completed Not Available Not Available Not Available cephalexi n 500 mg capsule TAKE 1 CAPSULE BY MOUTH EVERY 8 HOURS DIRECTED FOR 7 DAYS 10/22 completed Not Available Not Available Not Available oxycodone 5 mg capsule Take 1 capsule every 4 hours by oral route as needed. 08/20 completed Not Available Not Available Not Available ibuprofen 200 mg tablet Take 1 tablet every 6 hours by oral route as needed. 12/03 completed Not Available Not Available Not Available Levoxyl 50 mcg tablet DAILY 12/03 completed RECORDED 07/05/19 14 8:30AM BY BONNIE FLANAGAN MA, OFFICE VISIT; Not Available Not Available Not Available codeine 10 mg-guaife nesin 100 mg/5 mL oral liquid Take 10 mL every 4 hours by oral route as directed for 4 days. 07/19 completed Not Available Not Available Not Available gabapenti n 100 mg capsule Take 1 capsule 3 times a day by oral route as directed . 08/20 completed Not Available Not Available Not Available ibuprofen 600 mg tablet Take 1 tablet every 6 hours by oral route as directed . 08/20 completed Not Available Not Available Not Available Vitamin D2 1,250 mcg (50,000 unit) capsule Take 1 unit every week by oral route for 42 days. 12/03 completed Not Available Not Available Not Available ketoconaz ole 2 % topical cream APPLY TO THE AFFECTED AREA(S) BY TOPICAL ROUTE twice DAILY x 14 days 03/09 completed Not Available Not Available Not Available morphine 15 mg immediate release tablet 08/28 completed Not Available Not Available Not Available fluticaso ne propionat e 50 mcg/actua tion nasal spray,adriel pension [place] 2 sprays every day by intranas al route as directed for 14 days. 2023 active Not Available Not Available Not Avai lable doxycycli ne hyclate 100 mg tablet TAKE 1 TABLET BY MOUTH TWICE DAILY FOR 14 DAYS LIMIT ON EXPOSURE WHILE ON THIS ANTIBIOT IC 03/27 completed Not Available Not Available Not Available amoxicill in 875 mg-potass ium clavulana te 125 mg tablet TAKE 1 TABLET BY MOUTH EVERY 12 HOURS FOR 7 DAYS 05/03 completed Not Available Not Available Not Available Calcium Carb W/Vitamin D 600 mg-125 unit tablet Take 1 tablet 3 times a day by oral route as directed . 08/20 completed Not Available Not Available Not Available cyclobenz aprine 5 mg tablet Take 1 tablet 3 times a day by oral route for 10 days. 12/03 completed Not Available Not Available Not Available Flomax DAILY 06/16 completed RECORDED 06/16/20 11 12:31PM BY PETRA CRUM/LOU FELDER;THIS ORDER DISCONTI NUED PER MEDI-SPA N. Not Available Not Available Not Available Vitamin B6 active Unsure of dose Not Available Not Available Not Available Osteo Bi-Flex 07/19 completed Not Available Not Available Not Available Osteo Bi-Flex (5-Loxin) 1,500 mg-400 unit-100 mg tablet Take 2 tablets every day by oral route. 2019 active Not Available Not Available Not Avai lable Shingrix (PF) 50 mcg/0.5 mL intramusc kirk olivares kit 07/04 completed Not Available Not Available Not Available Vitals Date Recorded Body height Body mass index (BMI) Body weight Heart rate Oxygen saturation Oxygen saturation in Arterial blood by Pulse oximetry Body temperature Systolic blood pressure Diastolic blood pressure Provider Name and Address Organization Details Last Updated DateTime 4 164.47 cm 24.2 kg/m2 12989.4 g 71 /min 96 % 96 % 98.2 [degF] 135 mm[Hg] 76 mm[Hg] Viola Griffiths MA [facility] [place] 4 14:30:48 Social History Question Answer Notes LastModified by Organizat ion Details LastModified Time Tobacco Smoking Status Never Smoker Bonnie cox [facility] [place] 01/21/2014 14:27:36 Do You Have An Advance Directive? Yes Information not available 12/15/2021 What Is Your Level Of Alcohol Consumption? None Information not available 07/11/2014 Is Blood Transfusion Acceptable In An Emergency? Yes Information not available 02/12/2016 What Is Your Level Of Caffeine Consumption? Moderate 16 Oz Of Coffee A Day Information not available 02/12/2016 How Much Tobacco Do You Chew? None Information not available 07/10/2018 Have You Been To An Area Known To Be High Risk For COVID-19? No Information not available 12/15/2021 Are You Currently Employed? Yes Information not available 07/11/2014 What Type Of Diet Are You Following? REGULAR Information not available 02/12/2016 Which Illicit Or Recreational Drugs Have You Used? None Information not available 02/12/2016 Do You Or Have You Ever Used E-cigarettes Or Vape? 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 With Others ([place]) Information not available 12/15/2021 Do You Take Precautions To Prevent Distracted Driving? Yes Information not available 02/12/2016 How Often Do You Need To Have Someone Help You When You Read Instructions, Pamphlets, Or Other Written Material From Your Doctor Or Pharmacy? Sometimes Information not available 12/15/2021 Have You Or Anyone In Your Household Had Any Of The Following Symptoms In The Last 14 Days: Sore Throat, Cough, Chills, Body Aches For Unknown Reasons, Shortness Of Breath For Unknown Reasons, Loss Of Smell, Loss Of Taste, Fever At Or Greater Than 100 Degrees Fahrenheit? No [email or web address] Information not available 10/22/2020 Are You Or Anyone In Your Household A Health Care Provider Or Emergency Responder? No [email or web address] Information not available 10/22/2020 To The Best Of Your Knowledge Have You Been In Close Proximity To Any Individual Who Tested Positive For COVID-19? No Information not available 10/22/2020 Have You Recently Traveled To A COVID-19 High Risk Area Or Gathering In The Last 10 Days? No [email or web address] Information not available 10/22/2020 What Was The Date Of Your Most Recent Tobacco Screening? 02/13/2023 Information not available 02/13/2023 How Many Children Do You Have? 5 Information not available 07/11/2014 Do You Use Protection During Sex? No Information not available 12/15/2021 Do You Use Your Seat Belt Or Car Seat Routinely? Yes Information not available 12/15/2021 Seat Belts Used Routinely Yes Information not available 12/15/2021 Are You Sexually Active? No Information not available 12/15/2021 Smoke Alarm In Home Yes Information not available 12/15/2021 Do You Have Smoke And Carbon Monoxide Detectors In Your Home? Yes Information not available 12/15/2021 At What Age Did You Start Smoking Tobacco? 0 Information not available 07/10/2018 Are You Passively Exposed To Smoke? Yes Smokes Occasionally Information not available 02/13/2023 Do You Or Have You Ever Used Smokeless Tobacco? Never Used Smokeless Tobacco [email or web address] Information not available 08/21/2019 How Much Tobacco Do You Smoke? No Information not available 02/12/2016 Do You Use Any Illicit Or Recreational Drugs? No Information not available 02/13/2023 Do You Use Sunscreen Routinely? Yes Information not available 02/12/2016 How Many Years Have You Smoked Tobacco? 0 Information not available 12/15/2021 Sex: Unknown Functional Status Question Answer Note LastModified by Organization D etails LastModified Time Are you able to walk? YESWOREST Information not available 12/15/2021 Are you able to care for yourself? Yes [email or web address] Information not available 03/09/2017 What is your exercise level? Moderate Information not available 12/15/2021 Mental Status None recorded. Family History Relationship Description Onset Age of this Age Resolved Age Notes LastModified by Organization Details LastModified Time Father Carcinoma in situ of prostate [email or web address] Not available 2021 14:51:11 Father Myocardial infarction 68 [email or web address] Not available 12/15 14:51:11 Father Coronary arterioscler osis 78 [email or web address] Not available 2021 14:51:11 Mother Kidney disease 50 [email or web address] Not available 09:06:13 Medical History Condition Response Other N Gout N Kidney Stones N Blood Diseases N Hyperthyroidism N Breast Cancer N Depression N COPD N Lung Disease N Hypothyroidism Y Defects or Inherited Disease N Anesthesia Complications N Headaches/Migraines N Varicose Veins N Anxiety Disorder N Obesity N Vision or Eye Problems N Arthritis N Head Injury/Concussion N Polyps N Infertility N Congenital Anomalies N Acid Reflux (GERD) N Cancer N Stroke N ADHD N Endometriosis N High Cholesterol Y Liver Disease N Fibromyalgia N Kidney Disease N Heart Problems N Ear or Hearing Problems N Hospitalizations N Thyroid Problems N GI Problems N Acne N Eating Disorder N Skin Problems N Anemia N Constipation N Bladder Problems N Mental Illness N Ovarian Cancer N Diabetes N Blood Transfusions N Seizures/Epilepsy N Tuberculosis N AIDS/HIV N Congestive Heart Failure (CHF) N Eczema N Diverticulitis N Abuse/Domestic Violence N Asthma N Allergies N Reflux/GERD N Hepatitis N Pulmonary Embolism N Hypertension N Chicken Pox N Autism Spectrum Disorder (ASD) N Osteoporosis N Immunizations Vaccine Type Date Status Note Provider Nam e and Address Organization Details Recorded Time Tdap 7 completed Lucero Chaves CPPM null, [facility] [place] 08/21/2019 10:09:41 Influenza, high-dose, trivalent, PF 9 completed Nazia Toro null, [facility] [place] 08/23/2019 09:19:45 zoster recombinant 9 completed Nazia Toro null, [facility] [place] 08/23/2019 09:21:04 zoster live 9 completed Nazia Toro null, [facility] [place] 08/23/2019 09:22:57 Influenza, split virus, quadrivalent, PF 4 completed Aimee Miranda null, [facility] [place] 07/14/2023 11:12:53 COVID-19, mRNA, LNP-S, PF, 50 mcg/0.5 mL 4 completed Aimee Miranda null, [facility] [place] 07/14/2023 11:13:32 Pneumococcal conjugate PCV20, polysaccharide JPT403 conjugate, adjuvant, PF 4 completed Naziamoncho Toro null, [facility] [place] 01/22/2024 15:23:43 Tdap 4 completed Nazia Toro null, [facility] [place] 01/22/2024 15:24:28 Influenza, high-dose, trivalent, PF 6 completed Not Available [facility] 07/06/2019 02:22:03 Pneumococcal conjugate PCV 13 6 completed Not Available [facility] 07/06/2019 02:21:36 Influenza, high-dose, trivalent, PF 7 completed Not Available [facility] 07/06/2019 02:22:21 Influenza, high-dose, trivalent, PF 8 completed Not Available [facility] 07/06/2019 02:22:14 pneumococcal polysaccharide PPV23 8 completed Not Available [facility] 07/06/2019 02:21:28 Td (adult), 2 Lf tetanus toxoid, preservative free, adsorbed 9 completed Not Available [facility] 07/06/2019 02:21:30 Tdap 7 completed ASHLY Breaux, [facility] [place] 08/21/2019 10:09:41 Influenza, split virus, trivalent, preservative 4 completed Lucero Chaves CPPM null, [facility] [place] 08/21/2019 10:09:41 Influenza, high-dose, trivalent, PF 4 completed Viola Griffiths MA null, [facility] [place] 03/28/2024 14:12:27 Influenza, high-dose, trivalent, PF 4 completed SANDRO COLON [address], [address], [facility] 05/03/2024 09:34:59 Past Encounters Encounter ID Performer Location Encounter Start Date Encounter Closed Date Diagnosis/Indication Diagnosis SNOMED-CT Code Diagnosis ICD10 Code [id number] Sebastian Aquino PA-C Main Office [address] [id number] 03/27/2024 14:10:06 03/27/2024 15:24:11 Adult health examination 634563107 Z00.00 Influenza vaccine needed 8276147615 106 Z23 Hyperlipidemia 17573712 E78.5 Hypothyroidism 35980951 E03.9 Prediabetes 768484387 R7 3.03 Benign pro static hyperplasia 541021509 N40.0 History of calculus of kidney 626644325 Z87.442 Acute sinusitis 87064884 J01.90 Nocturia 880785732 R35.1 Skin lesion 28450476 L98 .9 Advance di rective discussed with patient 001412104 Z71.89 Health Concerns Section Related Observation LastModified by Organization Detai ls LastModified Time None Recorded Concern Status LastModified by Organization Details LastModified Time None Recorded Payers Encounter Date Sequence Insurance Name Policy Number Policy Delcid Covered Member ID Delcid Member ID Guarantor Name 03/27/2024 2 [facility] (O) Madi Saleem [id number] Madi Saleem 03/27/2024 1 [place]: [employer] Madi Saleem [id number] Madi Watters Ericsylvia Notes Date Note Type Note Provider Name and Address Organization Details Recorded Time 03/27/2024 text/html Medicare Annual Wellness VisitReported bypatient.Diet and Nutrition:healthy diet Fracture Risk:history of fractures(2020 - ribs) Physical Activity:good physical condition Depression Risk:never feels sad, empty, or tearful; no loss of interest in activities; no significant changes in weight; no sleep disturbances or insomnia; no agitation; no loss of energy; no feelings of worthlessness or guilt; no thoughts of suicide; no history of depression; no history of mood disorders Orientation:no disorientation to time; no disorientation to date; no disorientation to place Concentration and Memory:no memory lapses or loss Speech/Motor difficulties:no speech difficulties Hearing:no loss of hearing Vision:worse both distance and near(glasses) Activities of Daily Living:able to bathe with limited or no assistance; able to contol urination and bowels; able to dress with limited or no assistance; able to feed self with limited or no assistance; able to get out of chair or bed with limited or no assistance; able to groom with limited or no assistance; able to toilet with limited or no assistance Instrumental Activities of Daily Living:able to do house work with limited or no assistance; able to grocery shop with limited or no assistance; able to manage medications with limited or no assistance; able to manage money with limited or no assistance; able to prepare meals with limited or no assistance; able to use the phone with limited or no assistance Falls Risk Assessment:no frequent falls while walking; no fall in the past year; no fall since last visit;dizziness/vert igo(better lately - increased water intake) Home Safety:working smoke/CO detectors; use of seatbelts; no fire arms; good lighting in the home Sebastian Aquino PA-C [address] [address], [place], [address], [facility] 03/27/2024 20:24:53
--- OUTSIDE RECORDS SUMMARY | 2024-06-07 13:03 | XMS_ITS | Continuity of Care Document ---
Author Organization [facility]. If a dditional information is needed, contact Health Information Management at [phone] Address [address] [place] [address] Phone Care Team Providers Care Auto Clutch Specialist Name Role Phone Unavailable Unavailable Unavailable Unavailable Unavailable Unavailable Unavailable Unavailable Unavailable Unavailable Unavailable Unavailable Unavailable Unavailable Unavailable Problems Pleural effusion Onset:07-Aug-2019 Starck Jeff COOPER HELPER Left pneumothorax Onset:07-Aug-2019 Starck Jeff COOPER HELPER Fracture of clavicle Onset:05-Aug-2019 Dania JO Fracture of multiple ribs Onset:05-Aug-2019 Eagle Maddox MD Allergies and Adverse Reactions No Known Drug Allergies(Yemi rgy) Onset: 05-Aug-2019 Medications Ergocalciferol 1.25 MG Oral Capsule;91576 [employer] UNIT PO Q7D Start:10-Aug-2019 Comments:93626 IU PO Q7D ibuprofen 600 MG Oral Tablet ;600 MILLIGRAM PO Q6HR Start:10-Aug-2019 Comments:600 MG PO Q6HR gabapentin 100 MG Oral Capsu le;200 MILLIGRAM PO TID Start:10-Aug-2019 Comments:200 MG PO TID methocarbamol 500 MG Oral Ta blet [Robaxin];500 MILLIGRAM PO TID Start:10-Aug-2019 Comments:500 MG PO TID oxyCODONE hydrochloride 5 MG Oral Tablet [Roxicodone];5 MILLIGRAM PO Q4H PRN Start:10-Aug-2019 Comments:5 MG PO Q4H PRN As Needed for Pain Scale 4-6 (Use 2nd) sennosides, MCC 8.6 MG Oral Tablet [Senexon];17.2 MILLIGRAM PO DAILY Start:10-Aug-2019 Comments:17.2 MG PO DAILY calcium carbonate 600 MG / cholecalciferol 125 UNT Oral Tablet;1 EACH PO TID Start:10-Aug-2019 Comments:1 EACH PO TID acetaminophen 325 MG / HYDRO codone bitartrate 10 MG Oral Tablet [Lortab];1 TABLET PO Q4H PRN Start:07-Aug-2019 Comments:1 TAB PO Q4H PRN As Needed for Pain Scale 4-6 pravastatin sodium 40 MG Ora l Tablet [Pravachol];40 MILLIGRAM PO DAILY Start:05-Aug-2019 Comments:40 MG PO DAILY SYNTHROID;75 MICROGRAM PO DA ELVIA Start:05-Aug-2019 Comments:75 MCG PO DAILY Social History Smoking Status Ex-smoker Recorded: 05-Aug-2019
== END 2024-06-07 13:02 | disposition home or self-care (01) ==
LOC: HO.US 13:01
PROVIDERS: PCP Physician Assistant Medical; Visit Provider Nurse Practitioner Family
DX: N20.0 Calculus of kidney (principal)
CPT/HCPCS: 76775

== ENCOUNTER 2024-07-02 13:45 | Outpatient (AMB) | payer MEDICARE, OTHER, SELFPAY ==
--- NOTE | 2024-07-02 13:47 | MHC.OFFVIS ---
Intake Visit Reasons: 6m/US(set) Intake Note: Patient is present for Follow Up Ultrasound/PSA Urology Med: Vitamin B6 Antibiotic Allergy: None Blood Thinner: None Drilling Fluids Specialist Required: No Accompanied by: Self / Same As Patient Allergies No Known Allergies Allergy (Verified 07/02/24 14:16) Medication List - Last Reconciled 07/02/24 by EMILE LeahyP- amlodipine 5 mg PO DAILY levothyroxine mcg PO pravastatin mg PO pyridoxine (vitamin B6) 100 mg PO DAILY 90 days HPI Comments Details: Mr. Saleem is a very pleasant 74 year old male patient of Dr. Hall. He has a past medical history of hyperlipidemia, hypothyroidism, and nephrolithiasis. He is being seen today for a follow up of his nephrolithiasis and lower urinary tract symptoms. When asked he reports to be doing and feeling well. Recent renal ultrasound results reviewed with the patient today. Right kidney with no hydronephrosis or renal calculi. 1.7 cm mid pole cyst with echogenic foci with benign features. Left kidney with no hydronephrosis. A 1.4 cm cluster of calcifications in the lower pole as well as multiple small nonobstructing renal calculi measuring approximately 4 mm. A 1.0 cm lower pole cyst is redemonstrated, stable in size. In discussion with the patient today he reports to be doing and feeling well. He denies any bothersome urinary issues or concerns. He denies urinary urgency, urinary frequency, incontinence, nocturia, hematuria, dysuria, foul smelling urine, changes to urinary stream, flank pain, fever, and or chills. He is happy with his current voiding parameters. He reports to be drinking plenty of water daily. In office urinalysis results reviewed with the patient today. He reports compliance with vitamin B6 daily. He otherwise offers no other issues or concerns at this time. PSAs are as follows: 06/10 1.0, 06/11 0.8 Nephrolithiasis/Urolithiasis:? Had been seen at [facility] late 2019 with flank pain ? Urolithiasis was diagnosed?a number of years ago.? The patient previously had kidney stones whose composition w?calcium oxalate, calcium phosphate - hydroxyapatite.? - 02/07 weeks calcium oxalate with carbonate apatite ? Laboratory investigations include?no recent labs.? 24 Hour urine evaluation?none on file.? Prior treatment(s) include?ESWLx2 and , PCNL, left, 02/07 left USR ? Prior imaging includes?11/01 showing radiodense stone(s), on the left, < 5 mm ?11/02 , , showing radiodense stone(s), collection less than 5 mm on the left ?11/03 , showing no evidence of stones, collection on left < 5mm for 12mm total ?11/04 , a renal ultrasound, left 5mm stone ?12/06 , a KUB x-ray, left stone cluster 1 cm - 07/10 KUB left stone cluster 1 cm - 04/09 renal ultrasound, no stones right, small cluster left largest 5 mm ? The stone's maximum size is?2mm.? - 11/08 renal ultrasound, right complex renal cyst measuring 1.6 x 1.9 x 1.8 cm. Nonobstructing 1.3 x 0.7 x 0.8 cm stone, left side with no stones 1.3 cm cyst. Lower urinary tract symptoms ? Benign prostatic hyperplasia (BPH) was diagnosed?years ago.? Current symptoms include?AUA score 0 - very happy.? Alleviating factors include?TURP 04/29.? Associated symptoms include?none.? Recent labs included?a PSA (prostate-specific antigen) 2012 - 0.4 ?11/03 0.7.?, 04/09 1.3, 06/10 1.0 ? Investigative studies included?a uroflow Q max 23, voided volume of 180cc. PVR 17cc. PFSH Medical History Hyperlipidemia Hypothyroidism Benign prostatic hyperplasia without lower urinary tract symptoms Calculus of kidney Surgical History History of surgery Social History Patient Tobacco Use Status: Never used Tobacco Review of Systems Const All systems reviewed & are unremarkable except as noted in HPI and below Eyes Reports no additional complaints ENT Reports no additional complaints Card Reports as per HPI Resp Reports no additional complaints GI Reports no additional complaints Reports as per HPI Musc Reports no additional complaints Neuro Reports no additional complaints Psych Reports no additional complaints Endo Reports as per HPI Timoteo/Lymph Reports no additional complaints Aller/Immun Reports no additional complaints Physical Exam Const General: cooperative, healthy appearing, comfortable, no acute distress, well developed, alert and awake Orientation/consciousness: patient oriented x3 Limitations: no limitations HEENT Head: Yes normal to inspection, Yes normocephalic and Yes atraumatic Ears: hearing grossly normal bilaterally Eyes General: appearance normal, both eyes and all related structures Neck Neck: Yes normal visual inspection and Yes trachea midline Chest Chest palpation & inspection: normal inspection of the chest Resp Effort & Inspection: normal respiratory effort and able to speak in complete sentences Cardio Rate: regular rate GI Inspection: Yes normal to inspection General: Yes no CVA tenderness Back/Spine/Pelvis Back: no CVA tenderness Skin General skin exam: no rashes or lesions noted Neuro General: patient oriented x3 Extrem General: Yes normal to inspection Psych Appearance: grossly normal and well kempt Mental Status: mental status grossly normal Speech and movement: Normal speech and movement present and Clear speech present Affect: normal affect Attitude: cooperative Thought process: Normal thought process present Thought content: Normal thought content present Insight: Fair insight present (Psych) Judgement: Fair judgement present (Psych) Results AMB Urinalysis, Automated UA Leukoctes 0 Angela/uL Last Edit by AMAURY Webb on 07/02/24 13:57 UA Nitrite Negative Last Edit by AMAURY Webb on 07/02/24 13:57 UA Urobilinogen 0.2 mg/dL Last Edit by AMAURY Webb on 07/02/24 13:57 UA Protein 15 mg/dL Last Edit by AMAURY Webb on 07/02/24 13:57 UA pH 6.0 Last Edit by AMAURY Webb on 07/02/24 13:57 UA Blood 0 Kenyon/uL Last Edit by AMAURY Webb on 07/02/24 13:57 UA Specific [place] 1.015 Last Edit by AMAURY Webb on 07/02/24 13:57 UA Ketone Negative Last Edit by Lisa Irene A on 07/02/24 13:57 UA Bilirubin 0 mg/dL Last Edit by JUSTIN WebbA on 07/02/24 13:57 UA Glucose 0 mg/dL Last Edit by Lisa Irene A on 07/02/24 13:57 Results Reviewed Results Reviewed: Laboratory Last Values Urine pH (Auto) 6.0 07/02/24 13:51 Specific [place] (Auto) 1.015 07/02/24 13:51 Urine Protein (Auto) 15 mg/dL 07/02/24 13:51 Glucose (UA)(Auto) 0 mg/dL 07/02/24 13:51 Urine Ketones (Auto) Negative 07/02/24 13:51 Urine Blood (Auto) 0 Kenyon/uL 07/02/24 13:51 Urine Nitrite (Auto) Negative 07/02/24 13:51 Urine Bilirubin (Auto) 0 mg/dL 07/02/24 13:51 Urine Urobilinogen (Auto) 0.2 mg/dL 07/02/24 13:51 Leukocyte Esterase (Auto) 0 Angela/uL 07/02/24 13:51 Assessment & Plan Assessment & Plan (1) Complex renal cyst: Code(s): N28.1 - Cyst of kidney, acquired Category: Medical (2) Calculus of kidney: Code(s): N20.0 - Calculus of kidney Category: Medical (3) Benign prostatic hyperplasia without lower urinary tract symptoms: Code(s): N40.0 - Benign prostatic hyperplasia without lower urinary tract symptoms Category: Medical Plan In office urinalysis results reviewed with the patient today. Recent PSA results reviewed with the patient today; as noted above Recent renal ultrasound results reviewed with the patient today; as noted above. Patient currently denies any bothersome urinary issues or concerns. Patient reports be happy with current voiding parameters Continue vitamin B6 as discussed and prescribed. Discussed at length surveillance monitoring versus surgical intervention of nephrolithiasis; given increase in stone burden on left side; risks and benefits of these interventions were discussed. Patient does not currently wish to undergo further treatment options of nephrolithiasis at this time. Discussed near future further metabolic workup. Renal ultrasound in 6 months Follow-up in 6 months with imaging and lab to be completed prior or sooner with any questions, concerns, and or issues. Orders: Orders US renal BI 6 Months N20.0 - Calculus of kidney AMB Urinalysis Automated Today Z13.9 - Encounter for screening, unspecified Patient Instructions: The patient had an opportunity to ask questions regarding the treatment plan. All questions were answered. Physical exam, labs, and imaging were discussed and reviewed in detail. As well as risks, benefits, and discussion of treatment choices. No major barriers to understanding were identified. The patient expressed understanding and agreement with the above treatment plan. The patient was made aware they should contact our office by phone for worsening of their current condition, the appearance of new symptoms, or with any questions or concerns. Compliance is encouraged with any medications and follow up testing that is ordered. It is a privilege to be allowed the opportunity to participate in? your urological care.? Again, if you have any questions or concerns If you have any questions or concerns please do not hesitate to contact me. The office is [phone]. This note is constructed using voice recognition software. While every effort has been made to ensure accuracy instructional technology coordinator errors may have been included. Yours sincerely, CLEMENTE Leahy Coding Level of Care Code Est Pt Level 3 (60692) Diagnoses Complex renal cyst N28.1 Calculus of kidney N20.0 Benign prostatic hyperplasia without lower urinary tract symptoms N40.0
== END 2024-07-02 14:13 | disposition home or self-care (01) ==
PROVIDERS: PCP Physician Assistant Medical; Visit Provider Nurse Practitioner Family
DX: N28.1 Cyst of kidney, acquired (principal); N20.0 Calculus of kidney; N40.0 Benign prostatic hyperplasia without lower urinary tract symptoms; Z13.9 Encounter for screening, unspecified
CPT/HCPCS: 99213

== ENCOUNTER → 2024-07-02 13:45 | Outpatient (BNVA) | payer MEDICARE, OTHER, SELFPAY | PROVIDERS: PCP Physician Assistant Medical; Visit Provider Nurse Practitioner Family | DX: N20.0 Calculus of kidney (principal); N28.1 Cyst of kidney, acquired; N40.0 Benign prostatic hyperplasia without lower urinary tract symptoms; E78.5 Hyperlipidemia, unspecified; E03.9 Hypothyroidism, unspecified | CPT/HCPCS: 81003; 99212 ==

== ENCOUNTER 2025-01-27 14:53 | Outpatient (REF) | payer MEDICARE, OTHER, SELFPAY ==
--- NOTE | ~2025-01-27 | US_ITS ---
EXAMINATION: US KIDNEY BILATERAL HISTORY: N20.0 - Calculus of kidney TECHNIQUE: Real-time grayscale ultrasound imaging of the kidneys was performed and images were reviewed. COMPARISON: Comparison is made with the prior examination dated 06/07/2024. FINDINGS: Right kidney: The right kidney measures 11.4 x 4.8 x 4.9 cm. Renal parenchymal echotexture and thickness are normal. Again seen is a complicated cyst measuring 1.3 x 1.4 x 1.2 cm which demonstrates a septation and wall calcification. There is no hydronephrosis or renal calculi. Left Kidney: The left kidney measures 10.0 x 4.6 x 4.2 cm. Renal parenchymal echotexture and thickness are normal. There is a 1.1 cm cyst at the lower pole. There is a 9 x 5 x 5 mm nonobstructing calculus at the lower pole and a 2 mm nonobstructing calculus at the upper pole. There is no hydronephrosis. US/US renal BI IMPRESSION: 1. 1.4 cm complicated right renal cyst without change. Continued follow-up is recommended. 2. Left nephrolithiasis as described. Electronically signed by: Elbert Méndez MD 01/27/2025 03:40 PM EDT
--- OUTSIDE RECORDS SUMMARY | 2025-01-27 15:15 | XMS_ITS | Clinical Summary ---
Author Organization [facility] Address [address] [place] [address] Phone Care Team Providers Care Seed Mill Superintendent Name Role Phone Sebastian Rosales Primary Care Provider [phone]- [phone] Allergies No known active allergies Medications amLODIPine (NORVASC) 5 mg tablet Take 1 tablet (5 mg total) by mouth at bedtime. Active atorvastatin (LIPITOR) 20 mg tablet Take 1 tablet (20 mg total) by mouth at bedtime. Active levothyroxine (SYNTHROID, LEVOTHROID) 75 mcg tablet Take 88 mcg by mouth at bedtime. 05/04/2024 Active Encounters Date Type Department Care Team Description 12/09/2024 12:57 PM EDT Anesthesia Event [facility] OR [address] [place] [phone] Ilan Alfaro MD 12/09/2024 12:30 PM EDT - 12/09/2024 2:00 PM EDT Surgery [facility] OR [address] [place] [phone] Deborah Barriga MD RIGHT ENDOSCOPIC ETHMOIDECTOMY MAXILLARY ANTROSTOMY [58054 (CPT ) +1 more] 12/09/2024 11:02 AM EDT - 12/09/2024 11:59 PM EDT Hospital Encounter [facility] OR [address] [place] [phone] Deborah Barriga MD Chronic maxillary sinusitis Discharge Disposition: Home or Self Care from Last 3 Months Surgical History Surgery Date Site/Laterality Comments OTHER SURGICAL HISTORY KIDNEY STONE SURGERY Medical History Medical History Date Comments Hyperlipidemia Hypertension Disease of thyroid gland Hypothyroidism Kidney stones Social History Tobacco Use Types Packs/Day Years Used Date Smoking Tobacco: Never Smokeless Tobacco: Never Tobacco Cessation:Counseling Given: Not Answered Alcohol Use Standard Drinks/Week Comments Never 0 (1 standard drink = 0.6 oz pur e alcohol) Sex and Gender Information Value Date Recorded Sex Assigned at Not on file Legal Sex Male 2:29 AM EST Gender Identity Not on file Sexual Orientation Not on file Obstetrics History Last Filed Vital Signs Vital Sign Reading Time Taken Comments Blood Pressure 135/70 12/09/2024 3:53 PM EDT Pulse 73 12/09/2024 3:53 PM EDT Temperature 36.8 C (98.2 F) 12/09/2024 3:53 PM EDT Respiratory Rate 20 12/09/2024 3:53 PM EDT Oxygen Saturation 92% 12/09/2024 3:53 PM EDT Inhaled Oxygen Concentration - - Weight 67.1 kg (148 lb) 12/03/2024 3:00 PM EDT Height 167.6 cm (5' 6 ) 12/03/2024 3:00 PM EDT Body Mass Index 23.89 12/03/2024 3:00 PM EDT Plan of Treatment Health Maintenance Due Date Last Done Comments Zoster Vaccines (3 of 3) 06/02/2019 04/07/2019, 0711/2018 Cholesterol Screening (Lipid Panel) 05/22/2022 Hepatitis C Screening 05/22/2022 Medicare Annual Wellness Visit 05/22/2022 Social Influencers of Health Screening 05/22/2022 COVID-19 Vaccine (2 - 2023- season) 2024 07/14/2023 Depression Screening 06/19/2024 Influenza Vaccine (#1) 2025 , 03/28/2024, 07/14/2023, Additional history exists RSV Immunization Adult Patients (1 - 1-dose 75+ series) 2025 Falls Risk Assessment 12/09/2025 12/09/2024 DTaP,Tdap,and Td Vaccines (5 - Td or Tdap) 01/21/2034 01/22/2024, 07/10/2018, 08/20/2016, Additional history exists Colorectal Cancer Screening: Colonoscopy 11/19/2034 11/19/2024 Pneumococcal Vaccine: 50+ Years Completed 01/22/2024, 03/13/2018, 02/12/2016 HIB Vaccines Aged Out No longer eligi ble based on patient's age to complete this topic HPV Vaccines Aged Out No longer eligi ble based on patient's age to complete this topic Hepatitis A Vaccines Aged Out No long er eligible based on patient's age to complete this topic Hepatitis B Vaccines Aged Out No long er eligible based on patient's age to complete this topic IPV Vaccines Aged Out No longer eligi ble based on patient's age to complete this topic MMR Vaccines Aged Out No longer eligi ble based on patient's age to complete this topic Meningococcal ACWY Vaccine Aged Out N o longer eligible based on patient's age to complete this topic Meningococcal B Vaccine Aged Out No l onger eligible based on patient's age to complete this topic RSV Immunization Patients Under 20 months Aged Out No longer eligible based on patient's age to complete this topic Varicella Vaccines Aged Out No longer eligible based on patient's age to complete this topic Medical Devices Implanted Type Area Pharmacy Benefits Coordinator Device Identifier Shelf Expiration Date Model / Serial / Lot Kit Surgiflo W 2000 Units Ster Lyo - Sn/A - [id number] Implanted:Qty: 1 on 12/09/2024 by Deborah Barriga MD at [facility] Hemostasis N/A: Nose [employer] 03/18/2026 2994 / N/A / [id number] Procedures Procedure Name Priority Date/Time Associated Diagnosis Comments CULTURE TISSUE WITH GRAM STAIN Routine 12/09/2024 2:09 PM EDT Chronic maxillary sinusitis CULTURE FUNGUS, OTHER THAN SKIN HAIR OR NAILS Routine 12/09/2024 2:09 PM EDT Chronic maxillary sinusitis TISSUE EXAM Routine 12/09/2024 1:51 PM EDT Chronic maxillary sinusitis TH AN ENDOTRACHEAL(NO CHARGE) Routine 12/09/2024 1:34 PM EDT [place] NASAL/SINUS ENDOSCOPY SURGICAL WITH ETHMOIDECTOMY TOTAL 12/09/2024 12:58 PM EDT Chronic maxillary sinusitis [place] NASAL/SINUS ENDO W MAXILLARY ANTROSTOMY W REM TISSUE FROM MAX SINUS 12/09/2024 12:58 PM EDT Chronic maxillary sinusitis EXTERNAL COLONOSCOPY REPORT Routine 11/19/2024 10:53 AM EDT from Last 3 Months Results * (ABNORMAL) Culture tissue with gram stain (12/09/2024 2:09 PM EDT) Culture, Tissue Streptococcus viridans group(A) 12/14/2024 7:30 AM EDT [facility] Comment: Susceptibility testing not routinely performed. If further therapeutic information is required, please consult an infectious disease specialist. The organism value for this result has been updated. These results have been appended to the previously preliminary verified report. Culture, Tissue Peptostreptococcus anaerobius(A) 12/14/2024 7:30 AM [facility] Comment: Anaerobic susceptibilty testing is not routinely performed, if further therapeutic inforamation is required, please consult an Infectious Disease Specialist. The organism value for this result has been updated. These results have been appended to the previously preliminary verified report. Gram Stain Result Few Gram positive cocci in chains(A) 12/14/2024 7:30 AM [facility] Gram Stain Result Many Gram negative bacilli(A) 12/14/2024 7:30 AM [facility] Gram Stain Result Few Gram positive bacilli(A) 12/14/2024 7:30 AM [facility] Gram Stain Result No epithelial cells seen(A) 12/14/2024 7:30 AM [facility] Gram Stain Result No polymorphonuclear leukocytes seen(A) 12/14/2024 7:30 AM [facility] Tissue Nasal sinus structure / Unknown 12/09/2024 2:09 PM EDT 12/09/2024 2:33 PM EDT us Deborah Barriga MD LAB MICROBIOLOGY - GENERAL O RDERABLES Final Result Performing Organization Address City/[facility]/ZIP Co de Phone Number [facility] [address] [place] [address], * Culture fungus, other than skin hair or nails (12/09/2024 2:09 PM EDT) Culture, Fungus Negative for Fungus after 4 Weeks 01/06/2025 7:55 AM EDT [facility] Tissue Nasal sinus structure / Unknown 12/09/2024 2:09 PM EDT 12/09/2024 2:33 PM EDT Deborah Barriga MD LAB MICROBIOLOGY - GENERAL O RDERABLES Final Result Performing Organization Address [facility]/ZIP Co de Phone Number [facility] [address] [place] [address], * Tissue exam (12/09/2024 1:51 PM EDT) Final Diagnosis A. Sinus, Paranasal, right nasal polyp: -INFLAMMATORY POLYP B. Sinus, Paranasal, right sinus contents: -INFLAMMATORY POLYP -Fragments of mycetoma C. Sinus, Paranasal, right sinus debris: -MYCETOMA -Fragment of inflammatory polyp 5 4:06 PM EDT [facility] Comment A. GMS stain negativ e for fungi B.C.) GMS stain postitive for fungi consistent with aspergillus sp (Control appropriate) 5 4:06 PM EDT [facility] Gross Description A. Sinus, Paranasal, right nasal polyp: Labeled ID: 1, sinus, para-, right michelle . Received in formalin are two irregular disrupted pink-white to red rubbery tissue fragments, measuring 0.4 cm and 0.6 cm in greatest dimension, which are wrapped in paper and submitted in toto in one cassette, two pieces. B. Sinus, Paranasal, right sinus contents: Labeled ID: 2, sinus para, right sin . Received in formalin is a 8.3 x 7.2 x 0.5 cm aggregate of bryant-pink to red possible soft tissue fragments of which media sales representative sections are submitted in a mesh bag in one cassette, multiple pieces. C. Sinus, Paranasal, right sinus debris: Labeled ID: 3, sinus, para, right sin . Received in formalin is a 2.8 cm aggregate of irregular pink-red soft tissue and bryant-brown friable debris which is submitted in toto in a mesh bag in one cassette, multiple pieces. JACKIE 4:06 PM EDT [facility] Disclaimer NOTE: The immunohistochemical tests and in situ hybridization tests were developed and their performance characteristics were determined by [facility]. They have not been cleared or approved by the U.S. Food and Drug Administration. The FDA has determined that such clearance or approval is not necessary. These tests are used for clinical purposes. They should not be regarded as investigational or for research. This laboratory is certified under the Clinical Laboratory Improvement Amendments of 1988 (CLIA) as qualified to perform high complexity clinical laboratory testing. (controls appropriate) Unless otherwise specified, all tissue is 10% NB formalin fixed and paraffin embedded. 4:06 PM EDT [facility] Tissue Nasal sinus structure / Unknown 12/09/2024 1:51 PM EDT 12/09/2024 3:33 PM EDT Tissue specimen (specimen) Nasal sinus structure / Unknown 12/09/2024 2:07 PM EDT 12/09/2024 3:33 PM EDT Tissue specimen (specimen) Nasal sinus structure / Unknown 12/09/2024 2:08 PM EDT 12/09/2024 3:33 PM EDT us Deborah Barriga MD LAB PATHOLOGY ORDERABLES Fin al Result [facility] [address] [place] [address], * TH AN ENDOTRACHEAL(NO CHARGE) (12/09/2024 1:34 PM EDT) Shial Han CRNA - 12/09/2024 1:34 PM EDT Shila Gamboa CRNA 12/09/2024 1:36 PM General Information and Staff Patient location during procedure: OR Resident/INDUSTRIAL EQUIPMENT MECHANIC: Shila Gamboa CRNA Other anesthesia staff: ELVIA Swanson Performed: resident/INDUSTRIAL EQUIPMENT MECHANIC/CAA Performed by: Shila Gamboa CRNA Authorized by: Ilan Alfaro MD Intubation Airway not difficult Urgency: elective Final Airway Details Successful airway: ETT Cuffed: yes Successful intubation technique: direct laryngoscopy Facilitating devices/methods: intubating stylet Blade: Chinedu Blade size: #3 ETT size (mm): 7.5 Cormack-Lehane Classification: grade III - view of epiglottis only Placement verified by: chest auscultation and capnometry Measured from: lips ETT to lips (cm): 22 Number of attempts at approach: 2Final airway type: endotracheal airway Indications and Patient Condition Indications for airway management: anesthesia and airway protection Spontaneous ventilation: present Sedation level: Yes Preoxygenated: yes Soft Tissue Damage: No Dentition Unchanged: Yes Patient position: sniffing MILS maintained throughout Mask difficulty assessment: 2 - vent by mask + OA or adjuvant +/- NMBA us Ilan Alfaro MD ANESTHESIA ORDERABLES Final Re sult * External Colonoscopy Report (11/19/2024 10:53 AM EDT) Anatomical Region Laterality Modality Endoscopy Historical Provider GI~PROCEDURE ORDERABLES F inal Result from Last 3 Months Insurance [employer] Advance Directives Documents on File Type Date Recorded Patient Gauge Checker Expl anation Health Care Decision (hx) 01/14/2013 AD RANGEL DIRECTIVE Health Care Decision (hx) 01/14/2013 AD RANGEL DIRECTIVE Health Care Decision (hx) 01/14/2013 AD RANGEL DIRECTIVE Care Teams Seed Mill Superintendent Relationship Specialty Start Date End Date Sebastian Rosales PA [address] [phone] PCP - General Internal Medicine 12/03/24
== END 2025-01-27 14:54 | disposition home or self-care (01) ==
LOC: HO.US 14:53
PROVIDERS: PCP Physician Assistant Medical; Visit Provider Nurse Practitioner Family
DX: N20.0 Calculus of kidney (principal)
CPT/HCPCS: 76775

== ENCOUNTER → 2025-01-27 14:55 | Outpatient (BNV) | payer MEDICARE, OTHER, SELFPAY | PROVIDERS: PCP Physician Assistant Medical; Visit Provider Radiology Diagnostic Radiology | DX: N28.1 Cyst of kidney, acquired (principal) | CPT/HCPCS: 76775 ==

== ENCOUNTER 2025-02-06 15:20 | Outpatient (AMB) | payer MEDICARE, OTHER, SELFPAY ==
--- OUTSIDE RECORDS SUMMARY | 2025-02-06 15:22 | XMS_ITS | Clinical Summary ---
Author Organization [facility] Address [address] [place] [address] Phone Care Team Providers Care Surface Water Technician Name Role Phone Sebastian Rosales Primary Care Provider +1- [phone] Allergies No known active allergies Medications amLODIPine [...] Description 12/09/2024 12:57 PM EDT Anesthesia Event [facility] OR [address] [place] [phone] Ilan Alfaro MD 12/09/2024 12:30 PM EDT - 12/09/2024 2:00 PM EDT Surgery [facility] OR [address] [place] [phone] Deborah Barriga MD RIGHT ENDOSCOPIC ETHMOIDECTOMY MAXILLARY ANTROSTOMY [41533 (CPT ) +1 more] 12/09/2024 11:02 AM EDT - 12/09/2024 11:59 PM EDT Hospital Encounter [facility] OR [address] [place] [phone] Deborah Barriga MD Chronic maxillary sinusitis Discharge [...] this topic Medical Devices Implanted Type Area Gift Packer Device Identifier Shelf Expiration Date Model / Serial / Lot Kit Surgiflo W 2000 Units Ster Lyo - Sn/A - [id number] Implanted:Qty: 1 on 12/09/2024 by Deborah Barriga MD at [facility] Hemostasis N/A: Nose [employer] 03/18/2026 2994 / N/A / [id number] Procedures Procedure Name Priority Date/Time Associated Diagnosis Comments CULTURE TISSUE WITH GRAM STAIN Routine 12/09/2024 2:09 PM EDT Chronic maxillary sinusitis CULTURE FUNGUS, OTHER THAN SKIN HAIR OR NAILS Routine 12/09/2024 2:09 PM EDT Chronic maxillary sinusitis TISSUE EXAM Routine 12/09/2024 1:51 PM EDT Chronic maxillary sinusitis TH AN ENDOTRACHEAL(NO CHARGE) Routine 12/09/2024 1:34 PM EDT [place] NASAL/SINUS ENDOSCOPY SURGICAL WITH ETHMOIDECTOMY TOTAL 12/09/2024 12:58 PM EDT Chronic maxillary sinusitis [place] NASAL/SINUS ENDO W MAXILLARY ANTROSTOMY W REM TISSUE FROM MAX SINUS 12/09/2024 12:58 PM EDT Chronic maxillary sinusitis EXTERNAL COLONOSCOPY REPORT Routine 11/19/2024 10:53 AM EDT from Last 3 Months Results * (ABNORMAL) Culture tissue with gram stain (12/09/2024 2:09 PM EDT) Culture, Tissue Streptococcus viridans group(A) 12/14/2024 7:[address] [facility] Comment: Susceptibility testing not routinely performed. If further therapeutic information is required, please consult an infectious disease specialist. The organism value for this result has been updated. These results have been appended to the previously preliminary verified report. Culture, Tissue Peptostreptococcus anaerobius(A) 12/14/2024 7:30 AM [facility] Comment: Anaerobic susceptibilty testing is not routinely performed, if further therapeutic inforamation is required, please consult an Infectious Disease Specialist. The organism value for this result has been updated. These results have been appended to the previously preliminary verified report. Gram Stain Result Few Gram positive cocci in chains(A) 12/14/2024 7:30 AM [facility] Gram Stain Result Many Gram negative bacilli(A) 12/14/2024 7:30 AM [facility] Gram Stain Result Few Gram positive bacilli(A) 12/14/2024 7:30 AM [facility] Gram Stain Result No epithelial cells seen(A) 12/14/2024 7:30 AM [facility] Gram Stain Result No polymorphonuclear leukocytes seen(A) 12/14/2024 7:30 AM [facility] Tissue Nasal sinus structure / Unknown 12/09/2024 2:09 PM EDT 12/09/2024 2:33 PM EDT us Deborah Barriga MD LAB MICROBIOLOGY - GENERAL O RDERABLES Final Result Performing Organization Address City/[facility]/ZIP Co de Phone Number [facility] [address] [place] [address], * Culture fungus, other than skin hair or nails (12/09/2024 2:09 PM EDT) Culture, Fungus Negative for Fungus after 4 Weeks 01/06/2025 7:[address] [facility] Tissue Nasal sinus structure / Unknown 12/09/2024 2:09 PM EDT 12/09/2024 2:33 PM EDT Deborah Barriga MD LAB MICROBIOLOGY - GENERAL O RDERABLES Final Result Performing Organization Address [facility]/ZIP Co de Phone Number [facility] [address] [place] [address], * Tissue exam (12/09/2024 1:51 PM EDT) Final Diagnosis A. Sinus, Paranasal, right nasal polyp: -INFLAMMATORY POLYP B. Sinus, Paranasal, right sinus contents: -INFLAMMATORY POLYP -Fragments of mycetoma C. Sinus, Paranasal, right sinus debris: -MYCETOMA -Fragment of inflammatory polyp 5 4:[address] [facility] Comment A. GMS stain negativ e for fungi B.C.) GMS stain postitive for fungi consistent with aspergillus sp (Control appropriate) 5 4:[address] [facility] Gross Description A. Sinus, Paranasal, right [...] red possible soft tissue fragments of which architectural representative sections are submitted in a mesh bag in one cassette, multiple pieces. C. Sinus, Paranasal, right sinus debris: Labeled ID: 3, sinus, para, right sin . Received in formalin is a 2.8 cm aggregate of irregular pink-red soft tissue and bryant-brown friable debris which is submitted in toto in a mesh bag in one cassette, multiple pieces. JACKIE 4:[address] [facility] Disclaimer NOTE: The immunohistochemical tests and in situ hybridization tests were developed and their performance characteristics were determined by [facility]. They have not been [...] fixed and paraffin embedded. 4:[address] [facility] Tissue Nasal sinus structure / Unknown 12/09/2024 1:51 PM EDT 12/09/2024 3:33 PM EDT Tissue specimen (specimen) Nasal sinus structure / Unknown 12/09/2024 2:07 PM EDT 12/09/2024 3:33 PM EDT Tissue specimen (specimen) Nasal sinus structure / Unknown 12/09/2024 2:08 PM EDT 12/09/2024 3:33 PM EDT us Deborah Barriga MD LAB PATHOLOGY ORDERABLES Fin al Result [facility] [address] [place] [address], * TH AN ENDOTRACHEAL(NO CHARGE) (12/09/2024 1:34 PM EDT) Shila Han CRNA - 12/09/2024 1:34 PM EDT Shila Gamboa CRNA 12/09/2024 1:36 PM General Information and Staff Patient location during procedure: OR Resident/ROLL EXAMINER: Shila Gamboa CRNA Other anesthesia staff: ELVIA Swanson Performed: resident/ROLL EXAMINER/CAA Performed by: Shila Gamboa CRNA Authorized by: [...] Documents on File Type Date Recorded Patient Molding Line Operator Expl anation Health Care Decision (hx) 01/14/2013 AD RANGEL DIRECTIVE Health Care Decision (hx) 01/14/2013 AD RANGEL DIRECTIVE Health Care Decision (hx) 01/14/2013 AD RANGEL DIRECTIVE Care Teams Surface Water Technician Relationship Specialty Start Date End Date Sebastian Rosales PA [address] [phone] PCP - General Internal Medicine 12/03/24
--- NOTE | 2025-02-06 15:23 | MHC.OFFVIS ---
Intake Visit Reasons: 6 month follow up/US Intake Note: Patient is present for Follow Up/US Imaging 01/27 Urology Med: Vitamin B6 Antibiotic Allergy: None Blood Thinner: None Community Health Director Required: No Accompanied by: Self / Same As Patient Allergies No Known Allergies Allergy (Verified 02/06/25 21:04) Medication List - Last Reconciled 02/06/25 by JOSH Leahy- amlodipine 5 mg PO DAILY levothyroxine mcg PO pravastatin mg PO pyridoxine (vitamin B6) 100 mg PO DAILY 90 days HPI Comments Details: Mr. Saleem is a very pleasant 74 year old male patient of Dr. Rosales. He has a past medical history of hyperlipidemia, hypothyroidism, and nephrolithiasis. He presents to the office today for a follow up of his nephrolithiasis and renal cysts. When asked he reports to be doing and feeling well. Recent renal ultrasound results reviewed with the patient today. 02/10 bilateral kidneys are normal in parenchymal echotexture and thickness. Right renal cysts measuring 1.3 cm. Continued follow-up is recommended per radiology report. There is no hydronephrosis noted bilaterally. Left kidney with 9 mm in 2 mm nonobstructing calculi. When asked he reports compliance with vitamin B6 as prescribed. He also reports to be drinking plenty of fluid/water daily. He denies any bothersome urinary issues or concerns. He denies urinary urgency, urinary frequency, incontinence, nocturia, hematuria, dysuria, foul smelling urine, changes to urinary stream, flank pain, fever, and or chills. He is happy with his current voiding parameters. In office urinalysis results reviewed with the patient today. He does discussed noting a palpable area around his rectum. In assessment of the patient today it appear patient has external hemorrhoid. He does report he is overdue for colonoscopy. We did discussed following up with Gastroenterology. He otherwise offers no other issues or concerns at this time. PSAs are as follows: 06/10 1.0, 06/11 0.8 Nephrolithiasis/Urolithiasis:? Had been seen at [facility] late 2019 with flank pain ? Urolithiasis was diagnosed?a number of years ago.? The patient previously had kidney stones whose composition w?calcium oxalate, calcium phosphate - hydroxyapatite.? - 02/07 weeks calcium oxalate with carbonate apatite ? Laboratory investigations include?no recent labs.? 24 Hour urine evaluation?none on file.? Prior treatment(s) include?ESWLx2 and , PCNL, left, 02/07 left USR ? Prior imaging includes?11/01 showing radiodense stone(s), on the left, < 5 mm ?11/02 , , showing radiodense stone(s), collection less than 5 mm on the left ?11/03 , showing no evidence of stones, collection on left < 5mm for 12mm total ?11/04 , a renal ultrasound, left 5mm stone ?12/06 , a KUB x-ray, left stone cluster 1 cm - 07/10 KUB left stone cluster 1 cm - 04/09 renal ultrasound, no stones right, small cluster left largest 5 mm ? The stone's maximum size is?2mm.? - 11/08 renal ultrasound, right complex renal cyst measuring 1.6 x 1.9 x 1.8 cm. Nonobstructing 1.3 x 0.7 x 0.8 cm stone, left side with no stones 1.3 cm cyst. Lower urinary tract symptoms ? Benign prostatic hyperplasia (BPH) was diagnosed?years ago.? Current symptoms include?AUA score 0 - very happy.? Alleviating factors include?TURP 04/29.? Associated symptoms include?none.? Recent labs included?a PSA (prostate-specific antigen) 2012 - 0.4 ?11/03 0.7.?, 04/09 1.3, 06/10 1.0 ? Investigative studies included?a uroflow Q max 23, voided volume of 180cc. PVR 17cc. PFSH Medical History Hyperlipidemia Hypothyroidism Benign prostatic hyperplasia without lower urinary tract symptoms Calculus of kidney Surgical History History of surgery Social History Patient Tobacco Use Status: Never used Tobacco Review of Systems Const All systems reviewed & are unremarkable except as noted in HPI and below Eyes Reports no additional complaints ENT Reports no additional complaints Card Reports as per HPI Resp Reports no additional complaints GI Reports no additional complaints Reports as per HPI Musc Reports no additional complaints Neuro Reports no additional complaints Psych Reports no additional complaints Endo Reports as per HPI Timoteo/Lymph Reports no additional complaints Aller/Immun Reports no additional complaints Physical Exam Const General: cooperative, healthy appearing, comfortable, no acute distress, well developed, alert and awake Orientation/consciousness: patient oriented x3 Limitations: no limitations HEENT Head: Yes normal to inspection, Yes normocephalic and Yes atraumatic Ears: hearing grossly normal bilaterally Eyes General: appearance normal, both eyes and all related structures Neck Neck: Yes normal visual inspection and Yes trachea midline Chest Chest palpation & inspection: normal inspection of the chest Resp Effort & Inspection: normal respiratory effort and able to speak in complete sentences Cardio Rate: regular rate GI Inspection: Yes normal to inspection General: Yes no CVA tenderness Back/Spine/Pelvis Back: no CVA tenderness Skin General skin exam: no rashes or lesions noted Neuro General: patient oriented x3 Extrem General: Yes normal to inspection Psych Appearance: grossly normal and well kempt Mental Status: mental status grossly normal Speech and movement: Normal speech and movement present and Clear speech present Affect: normal affect Attitude: cooperative Thought process: Normal thought process present Thought content: Normal thought content present Insight: Fair insight present (Psych) Judgement: Fair judgement present (Psych) Results AMB Urinalysis, Automated UA Leukoctes 0 Angela/uL Last Edit by Karolina Silva on 02/06/25 16:51 UA Nitrite Negative Last Edit by Karolina Silva on 02/06/25 16:51 UA Urobilinogen 3.5 mg/dL Last Edit by Karolina Silva on 02/06/25 16:51 UA Protein 0 mg/dL Last Edit by Karolina Silva on 02/06/25 16:51 UA pH 6.0 Last Edit by Karolina Silva on 02/06/25 16:51 UA Blood 0 Kenyon/uL Last Edit by Karolina Silva on 02/06/25 16:51 UA Specific [place] 1.015 Last Edit by Karolina Silva on 02/06/25 16:51 UA Ketone Negative Last Edit by Karolina Silva on 02/06/25 16:51 UA Bilirubin 0 mg/dL Last Edit by Karolina Silva on 02/06/25 16:51 UA Glucose 0 mg/dL Last Edit by Karolina Silva on 02/06/25 16:51 Results Reviewed Results Reviewed: Laboratory Last Values Urine pH (Auto) 6.0 02/06/25 16:02 Specific [place] (Auto) 1.015 02/06/25 16:02 Urine Protein (Auto) 0 mg/dL 02/06/25 16:02 Glucose (UA)(Auto) 0 mg/dL 02/06/25 16:02 Urine Ketones (Auto) Negative 02/06/25 16:02 Urine Blood (Auto) 0 [place]/uL 02/06/25 16:02 Urine Nitrite (Auto) Negative 02/06/25 16:02 Urine Bilirubin (Auto) 0 mg/dL 02/06/25 16:02 Urine Urobilinogen (Auto) 3.5 mg/dL 02/06/25 16:02 Leukocyte Esterase (Auto) 0 Angela/uL 02/06/25 16:02 Date of Service: 01/27/25 Procedure(s): US renal BI FINDINGS: Right kidney: The right kidney measures 11.4 x 4.8 x 4.9 cm. Renal parenchymal echotexture and thickness are normal. Again seen is a complicated cyst measuring 1.3 x 1.4 x 1.2 cm which demonstrates a septation and wall calcification. There is no hydronephrosis or renal calculi. Left Kidney: The left kidney measures 10.0 x 4.6 x 4.2 cm. Renal parenchymal echotexture and thickness are normal. There is a 1.1 cm cyst at the lower pole. There is a 9 x 5 x 5 mm nonobstructing calculus at the lower pole and a 2 mm nonobstructing calculus at the upper pole. There is no hydronephrosis. IMPRESSION: 1. 1.4 cm complicated right renal cyst without change. Continued follow-up is recommended. 2. Left nephrolithiasis as described. Assessment & Plan Assessment & Plan (1) Calculus of kidney: Code(s): N20.0 - Calculus of kidney Category: Medical (2) Complex renal cyst: Code(s): N28.1 - Cyst of kidney, acquired Category: Medical (3) Benign prostatic hyperplasia without lower urinary tract symptoms: Code(s): N40.0 - Benign prostatic hyperplasia without lower urinary tract symptoms Category: Medical Plan In office urinalysis results reviewed with the patient today; as noted above. Recent renal imaging results reviewed with the patient today; as noted above. We discussed importance of following up with Gastroenterology. He currently denies any bothersome urinary issues or concerns. Reports be happy with current voiding parameters. We discussed further interventions of renal calculi given patient's longstanding history; risks and benefits of these interventions were discussed Patient would like to continue with surveillance monitoring at this time. Will continue with surveillance monitoring of renal cyst as recommended. Will obtain PSA. Follow-up in 6 months with PSA and imaging; or sooner with any issues, concerns, and or questions. Orders: Orders Prostate Specific Antigen Today N40.0 - Benign prostatic hyperplasia without lower urinary tract symptoms AMB Urinalysis Automated Today Z13.9 - Encounter for screening, unspecified US renal BI 6 Months N20.0 - Calculus of kidney Patient Instructions: The patient had an opportunity to ask questions regarding the treatment plan. All questions were answered. Physical exam, labs, and imaging were discussed and reviewed in detail. As well as risks, benefits, and discussion of treatment choices. No major barriers to understanding were identified. The patient expressed understanding and agreement with the above treatment plan. The patient was made aware they should contact our office by phone for worsening of their current condition, the appearance of new symptoms, or with any questions or concerns. Compliance is encouraged with any medications and follow up testing that is ordered. It is a privilege to be allowed the opportunity to participate in? your urological care.? Again, if you have any questions or concerns If you have any questions or concerns please do not hesitate to contact me. The office is [phone]. This note is constructed using voice recognition software. While every effort has been made to ensure accuracy [employer] errors may have been included. Yours sincerely, CLEMENTE Leahy Coding Level of Care Code Est Pt Level 3 (62070) Complex EM visit Add On G2211 Diagnoses Calculus of kidney N20.0 Complex renal cyst N28.1 Benign prostatic hyperplasia without lower urinary tract symptoms N40.0
== END 2025-02-06 16:07 | disposition home or self-care (01) ==
LOC: HO.HUSH 15:21
PROVIDERS: PCP Physician Assistant Medical; Visit Provider Nurse Practitioner Family
DX: N20.0 Calculus of kidney (principal); N28.1 Cyst of kidney, acquired; N40.0 Benign prostatic hyperplasia without lower urinary tract symptoms; Z13.9 Encounter for screening, unspecified
CPT/HCPCS: 99213; G2211

== ENCOUNTER → 2025-02-06 15:20 | Outpatient (BNVA) | payer MEDICARE, OTHER, SELFPAY | PROVIDERS: PCP Physician Assistant Medical; Visit Provider Nurse Practitioner Family | DX: N20.0 Calculus of kidney (principal); N28.1 Cyst of kidney, acquired; N40.0 Benign prostatic hyperplasia without lower urinary tract symptoms | CPT/HCPCS: 81003; 99212 ==